=== PATIENT | female | born 1965 | race American Indian/Alaskan Native ===

== ENCOUNTER 2019-03-16 18:07 | Inpatient (IN) | payer MEDICAID, OTHER ==
--- NOTE | 2019-03-16 18:27 | Cat Scan Report ---
PROCEDURE: CT HEAD/BRAIN WO CON TECHNIQUE: Axial noncontrast CT images the brain were performed Total exam DLP 805.14 mgy-centimeter HISTORY: neuro deficits <6hrs or sx present upon awakening COMPARISONS: None FINDINGS: There is questionable subtle loss of the sofia-white junction of the left hemisphere which is atypical location for artifact. There is no gyral edema identified. The sulci are intact. There is no midline shift. Lateral ventricles are normal appearance. Pineal calcification. Bilateral basal ganglia calcification. Tortuous basilar artery is slightly prominent cephalad measuring up to 4 x 6 mm. This may be due to t ortuosity or less likely an aneurysm but cannot be assessed fully in the axial plane. No acute extra-axial fluid collection. No mass effect. Conjugate gaze. Orbital cones and apices are unremarkable. The posterior fossa is unremarkable. Clear imaged paranasal sinuses. Calvarium is unremarkable. IMPRESSION: No acute intracranial hemorrhage. Low-density of the left hemispheric white matter relative to the right which is a common artifactual finding. However, superimposed subtle acute infarct cannot be excluded. There are no secondary signs to suggest this as findings such as gyral effacement or lateral ventricle displacement. Given the cli nical symptoms, if highly suspicious, recommend MRI with diffusion-weighted imaging. Tortuous basilar artery is mildly prominent distally measuring 4 x 6 mm. This is likely due to tortuo sity but a small basilar tip aneurysm cannot be excluded. There are no blood products. Consider furth er assessment with MRA at the time of MRI. Findings are called as a critical level two result on 03/16/2019 at 1823 hours Eastern standard time. This document is electronically signed by Bernice Marsh MD., Mar 16 2019 06:25:27 PM ET
--- NOTE | 2019-03-16 18:30 | Emergency Department Report ---
ED Neuro Deficit HPI - General Chief Complaint: Neuro Symptoms/Deficit Stated Complaint: POSSIBLE STROKE Time Seen by Provider: 03/16/19 18:09 Source: patient, EMS Mode of arrival: Stretcher Limitations: No Limitations - History of Present Illness Initial Comments: Patient is a 53-year-old female that presents emergency room with right-sided weakness and slurred speech. Patient is also complaining of some confusion. Patient states her last normal well time was 520. Patient states that she was on the phone with her mother when her symptoms started. Patient states her speech and weakness is slightly improving. Patient denies chest pain shortness of breath. Patient denies dizziness. Patient denies head trauma. Patient denies past medical history except for hypertension and smoking. -: Sudden Location: speech, dysarthria, right arm, right leg Presenting Symptoms: Present: Weak/Paralyzed One Side, Unable to Speak Clearly History of same: No Place: work Severity: severe Quality: weak Improves With: time Worsens With: none On Anticoagulants: No Context: sudden onset Associated Symptoms: confusion, weakness. denies: chest pain, cough, d iaphoresis, fever/chills, headaches, loss of appetite, malise, nausea/vomiting, vertigo, seizures, shortness of breath, syncope Treatments Prior to Arrival: none - Related Data Home Medications: Home Medications Medication Instructions Recorded Confirmed Last Taken Amlodipine Besylate [Norvasc] 5 mg PO DAILY 03/16/19 03/16/19 Unknown Ergocalciferol (Vitamin D2) 50 mcg PO DAILY 03/16/19 03/16/19 Unknown [Vitamin D2] Allergies/Adverse Reactions: Allergies Allergy/AdvReac Type Severity Reaction Status Date / Time No Known Allergies Allergy Unverified 03/16/19 18:51 ED Review of Systems ROS: Stated complaint: POSSIBLE STROKE Other details as noted in HPI Constitutional: weakness. denies: chills, fever Eyes: denies: eye pain, eye discharge, vision change ENT: denies: ear pain, throat pain Respiratory: denies: cough, shortness of breath, wheezing Cardiovascular: denies: chest pain, palpitations Endocrine: no symptoms reported Gastrointestinal: denies: abdominal pain, nausea, diarrhea Genitourinary: denies: urgency, dysuria, discharge Musculoskeletal: denies: back pain, joint swelling, arthralgia Skin: denies: rash, lesions Neurological: weakness, numbness, confusion, abnormal gait. denies: headache Psychiatric: denies: anxiety, depression Hematological/Lymphatic: denies: easy bleeding, easy bruising ED Past Medical Hx - Past Medical History Previous Medical History?: Yes Hx Hypertension: Yes - Surgical History Past Surgical History?: No - Family History Family history: no significant - Social History Smoking Status: Current Every Day Smoker Substance Use Type: None - Medications Home Medications: Home Medications Medication Instructions Recorded Confirmed Last Taken Type Amlodipine Besylate [Norvasc] 5 mg PO DAILY 03/16/19 03/16/19 Unknown History Ergocalciferol (Vitamin D2) 50 mcg PO DAILY 03/16/19 03/16/19 Unknown History [Vitamin D2] ED Neuro Physical Exam - General Limitations: No Limitations General appearance: alert, in no apparent distress Suspected Stroke: Yes - Head Head exam: Present: atraumatic, normocephalic - Eye Eye exam: Present: normal appearance, PERRL Pupils: Present: normal accommodation - ENT ENT exam: Present: mucous membranes moist - Neck Neck exam: Present: normal inspection - Respiratory Respiratory exam: Present: normal lung sounds bilaterally. Absent: respiratory distress - Cardiovascular Cardiovascular Exam: Present: regular rate, normal rhythm. Absent: systolic murmur, diastolic murmur, rubs, gallop - GI/Abdominal GI/Abdominal exam: Present: soft, normal bowel sounds. Absent: distended, tenderness, guarding - Rectal Rectal exam: Present: deferred - Extremities Exam Extremities exam: Present: normal inspection - Back Exam Back exam: Present: normal inspection - Neurological Exam Neurological exam: Present: alert, oriented X3 - NIHSS Assessment Interval: Baseline 1a. Level of Consciousness: alert/keenly responsive 1b. LOC Questions: answers both correctly 1c. LOC Commands: performs tasks correctly 2. Best Gaze: normal 3. Visual: no visual loss 4. Facial Palsy: minor paralysis 5b. Motor Arm Right: drift 5a. Motor Arm Left: no drift 6a. Motor Leg Left: no drift 6b. Motor Leg Right: drift 7. Limb Ataxia: absent 8. Sensory: mild/moderate sensory loss 9. Best Language: severe aphasia 10. Dysarthria: normal 11. Extinction/Inattention: no abnormality Total Score: 6 Stroke Severity: Moderate Stroke - Psychiatric Psychiatric exam: Present: normal affect, normal mood - Skin Skin exam: Present: warm, dry, intact, normal color. Absent: rash ED Course Vital Signs 03/16/19 03/16/19 03/16/19 18:38 18:59 19:00 Temperature 97.6 F Pulse Rate 86 89 86 Respiratory 16 18 22 Rate Blood Pressure Blood Pressure 161/109 [Right] O2 Sat by Pulse 98 96 96 Oximetry 03/16/19 03/16/19 03/16/19 19:04 19:05 19:11 Temperature Pulse Rate 84 86 98 H Respiratory 17 14 Rate Blood Pressure 168/10 168/102 168/102 Blood Pressure [Right] O2 Sat by Pulse 96 98 Oximetry 03/16/19 03/16/19 03/16/19 19:12 19:15 19:20 Temperature Pulse Rate 90 79 65 Respiratory 13 10 L Rate Blood Pressure 181/112 179/107 158/85 Blood Pressure [Right] O2 Sat by Pulse 99 96 Oximetry 03/16/19 03/16/19 03/16/19 19:21 19:31 19:41 Temperature Pulse Rate 84 89 Respiratory 16 14 Rate Blood Pressure 158/85 Blood Pressure 158/85 150/89 [Right] O2 Sat by Pulse 97 96 97 Oximetry 03/16/19 03/16/19 03/16/19 19:45 19:50 19:52 Temperature Pulse Rate 82 86 70 Respiratory 15 13 11 L Rate Blood Pressure 145/94 146/88 Blood Pressure 145/94 146/88 [Right] O2 Sat by Pulse 96 97 96 Oximetry 03/16/19 03/16/19 03/16/19 19:55 20:00 20:05 Temperature Pulse Rate 76 85 86 Respiratory 16 13 14 Rate Blood Pressure 148/87 148/96 147/92 Blood Pressure [Right] O2 Sat by Pulse 96 95 95 Oximetry 03/16/19 03/16/19 03/16/19 20:08 20:10 20:15 Temperature Pulse Rate 82 80 73 Respiratory 13 8 L 12 Rate Blood Pressure 145/92 156/89 Blood Pressure 147/92 [Right] O2 Sat by Pulse 98 98 97 Oximetry 03/16/19 03/16/19 03/16/19 20:20 20:25 20:30 Temperature Pulse Rate 88 77 78 Respiratory 18 8 L 12 Rate Blood Pressure 150/86 142/83 155/86 Blood Pressure 150/86 [Right] O2 Sat by Pulse 95 95 96 Oximetry 03/16/19 03/16/19 03/16/19 20:35 20:36 20:40 Temperature Pulse Rate 77 76 73 Respiratory 9 L 11 L 14 Rate Blood Pressure 133/82 144/87 Blood Pressure 133/82 [Right] O2 Sat by Pulse 98 98 96 Oximetry 03/16/19 03/16/19 03/16/19 20:45 20:49 20:50 Temperature Pulse Rate 81 85 74 Respiratory 12 15 12 Rate Blood Pressure 142/90 150/91 Blood Pressure 150/91 [Right] O2 Sat by Pulse 97 96 95 Oximetry 03/16/19 03/16/19 03/16/19 20:55 20:57 21:00 Temperature 98.6 F Pulse Rate 70 71 Respiratory 13 14 Rate Blood Pressure 146/87 140/96 Blood Pressure [Right] O2 Sat by Pulse 96 97 Oximetry 03/16/19 03/16/19 03/16/19 21:04 21:05 21:10 Temperature Pulse Rate 80 81 79 Respiratory 14 13 10 L Rate Blood Pressure 148/82 133/84 Blood Pressure 148/82 [Right] O2 Sat by Pulse 97 97 97 Oximetry 03/16/19 03/16/19 03/16/19 21:15 21:21 21:25 Temperature Pulse Rate 76 104 H 80 Respiratory 10 L 21 14 Rate Blood Pressure 121/89 121/89 148/97 Blood Pressure [Right] O2 Sat by Pulse 96 95 95 Oximetry 03/16/19 03/16/19 03/16/19 21:30 21:35 21:40 Temperature Pulse Rate 92 H 88 74 Respiratory 14 13 16 Rate Blood Pressure 143/96 160/101 165/92 Blood Pressure 160/101 [Right] O2 Sat by Pulse 95 98 97 Oximetry 03/16/19 03/16/19 03/16/19 21:43 21:45 21:51 Temperature Pulse Rate 83 190 H Respiratory 13 14 Rate Blood Pressure 151/101 159/109 Blood Pressure 165/92 [Right] O2 Sat by Pulse 97 97 Oximetry 03/16/19 03/16/19 03/16/19 21:55 22:00 22:05 Temperature Pulse Rate 75 74 76 Respiratory 21 12 11 L Rate Blood Pressure 158/117 153/96 153/98 Blood Pressure [Right] O2 Sat by Pulse 98 98 96 Oximetry 05/01/19 05/01/19 05/01/19 22:10 22:15 22:20 Temperature Pulse Rate 76 87 83 Respiratory 11 L 12 10 L Rate Blood Pressure 163/100 144/100 138/88 Blood Pressure [Right] O2 Sat by Pulse 97 97 96 Oximetry 03/16/19 03/16/19 03/16/19 22:25 22:29 22:30 Temperature Pulse Rate 88 95 H Respiratory 14 18 13 Rate Blood Pressure 163/97 162/87 Blood Pressure [Right] O2 Sat by Pulse 98 96 Oximetry 03/16/19 03/16/19 03/16/19 22:35 22:40 22:45 Temperature Pulse Rate 93 H 94 H 89 Respiratory 13 15 14 Rate Blood Pressure 177/85 167/95 161/91 Blood Pressure [Right] O2 Sat by Pulse 97 97 96 Oximetry 03/16/19 03/16/19 22:50 22:54 Temperature Pulse Rate 89 87 Respiratory 11 L Rate Blood Pressure 154/86 154/86 Blood Pressure [Right] O2 Sat by Pulse 97 Oximetry - Reevaluation(s) Reevaluation #1: Initial evaluation done. Patient sent to CT scan. Code stroke initiated prior to arrival. 03/16/19 18:08 Reevaluation #2: Discussed CT findings with neurologist. Neurologist seeing the patient. 03/16/19 18:34 Reevaluation #3: She has agreed to TPA. Patient will be given TPA weight accordance. Neurol ogist still seeing patient. 03/16/19 19:04 Reevaluation #4: Discussed all results patient. Patient patient voiced understanding. Discussed plan of care with patient. Patient agrees to plan of care and admission to the hospitalist service. 03/16/19 20:40 - Consultations Consultation #1: Neurology consulted. 03/16/19 18:04 Stress case fully with neurologist again. Patient will have a CTA and patient started and given TPA. 03/16/19 19:07 Consultation #2: Hospitalist consulted for admission. Hospitalist to admit patient. Hospitalist to assume care patient. 03/16/19 20:40 - Lab Data Result diagrams: 03/16/19 18:20 03/16/19 18:20 Lab Results 03/16/19 03/16/19 03/16/19 Range/Units 18:20 18:20 18:20 WBC 9.0 (4.5-11.0) K/mm3 RBC 4.42 (3.65-5.03) M/mm3 Hgb 14.1 (10.1-14.3) gm/dl Hct 42.2 (30.3-42.9) % MCV 96 (79-97) fl MCH 32 (28-32) pg MCHC 33 (30-34) % RDW 13.8 (13.2-15.2) % Plt Count 229 (140-440) K/mm3 Lymph % (Auto) 41.0 H (13.4-35.0) % Page % (Auto) 5.4 (0.0-7.3) % Eos % (Auto) 1.8 (0.0-4.3) % Baso % (Auto) 0.3 (0.0-1.8) % Lymph # 3.7 (1.2-5.4) K/mm3 Page # 0.5 (0.0-0.8) K/mm3 Eos # 0.2 (0.0-0.4) K/mm3 Baso # 0.0 (0.0-0.1) K/mm3 Seg Neutrophils % 51.5 (40.0-70.0) % Seg Neutrophils # 4.7 (1.8-7.7) K/mm3 PT 13.0 (12.2-14.9) Sec. INR 0.93 (0.87-1.13) APTT 30.3 (24.2-36.6) Sec. Thrombin Time (15.1-19.6) Sec. Sodium (137-145) mmol/L Potassium (3.6-5.0) mmol/L Chloride (98-107) mmol/L Carbon Dioxide (22-30) mmol/L Anion Gap mmol/L BUN (7-17) mg/dL Creatinine (0.7-1.2) mg/dL Estimated GFR ml/min BUN/Creatinine Ratio % Glucose (65-100) mg/dL Calcium (8.4-10.2) mg/dL Troponin T (0.00-0.029) ng/mL HCG, Qual Negative (Negative) 03/16/19 03/16/19 Range/Units 18:20 18:20 WBC (4.5-11.0) K/mm3 RBC (3.65-5.03) M/mm3 Hgb (10.1-14.3) gm/dl Hct (30.3-42.9) % MCV (79-97) fl MCH (28-32) pg MCHC (30-34) % RDW (13.2-15.2) % Plt Count (140-440) K/mm3 Lymph % (Auto) (13.4-35.0) % Page % (Auto) (0.0-7.3) % Eos % (Auto) (0.0-4.3) % Baso % (Auto) (0.0-1.8) % Lymph # (1.2-5.4) K/mm3 Page # (0.0-0.8) K/mm3 Eos # (0.0-0.4) K/mm3 Baso # (0.0-0.1) K/mm3 Seg Neutrophils % (40.0-70.0) % Seg Neutrophils # (1.8-7.7) K/mm3 PT (12.2-14.9) Sec. INR (0.87-1.13) APTT (24.2-36.6) Sec. Thrombin Time 16.3 (15.1-19.6) Sec. Sodium 143 (137-145) mmol/L Potassium 3.7 (3.6-5.0) mmol/L Chloride 103.7 (98-107) mmol/L Carbon Dioxide 28 (22-30) mmol/L Anion Gap 15 mmol/L BUN 12 (7-17) mg/dL Creatinine 0.9 (0.7-1.2) mg/dL Estimated GFR > 60 ml/min BUN/Creatinine Ratio 13 % Glucose 104 H (65-100) mg/dL Calcium 9.0 (8.4-10.2) mg/dL Troponin T < 0.010 (0.00-0.029) ng/mL HCG, Qual (Negative) - EKG Data -: EKG Interpreted by [facility] EKG shows normal: sinus rhythm, axis, intervals, QRS complexes, ST-T waves Rate: normal - Radiology Data Radiology results: report reviewed PROCEDURE: CT HEAD/BRAIN WO CON TECHNIQUE: Axial noncontrast CT images the brain were performed Total exam DLP 805.14 mgy-centimeter HISTORY: neuro deficits <6hrs or sx present upon awakening COMPARISONS: None FINDINGS: There is questionable subtle loss of the sofia-white junction of the left hemisphere which is atypical location for artifact. There is no gyral edema identified. The sulci are intact. There is no midline shift. Lateral ventricles are normal appearance. Pineal calcification. Bilateral basal ganglia calcification. Tortuous basilar artery is slightly prominent cephalad measuring up to 4 x 6 mm. This may be due to tortuosity or less likely an aneurysm but cannot be assessed fully in the axial plane. No acute extra-axial fluid collection. No mass effect. Conjugate gaze. Orbital cones and apices are unremarkable. The posterior fossa is unremarkable. Clear imaged paranasal sinuses. Calvarium is unremarkable. IMPRESSION: No acute intracranial hemorrhage. Low-density of the left hemispheric white matter relative to the right which is a common artifactual finding. However, superimposed subtle acute infarct cannot be excluded. There are no secondary signs to suggest this as findings such as gyral effacement or lateral ventricle displacement. Given the clinical symptoms, if highly suspicious, recommend MRI with diffusion- weighted imaging. Tortuous basilar artery is mildly prominent distally measuring 4 x 6 mm. This is likely due to tortuosity but a small basilar tip aneurysm cannot be excluded. There are no blood products. Consider further assessment with MRA at the time of MRI. Findings are called as a critical level two result on 03/16/2019 at 1823 hours Eastern standard time. ADDENDUM ADDENDUM: Findings discussed with on 03/16/2019 at 1837 hours Eastern standard time. Per the referring clinician, patient has acute right-sided weakness. This document is electronically signed by Bernice aMrsh MD., Mar 16 2019 06:38:20 PM ET PROCEDURE: CT ANGIO NECK TECHNIQUE: Computerized tomographic angiography of the neck was performed after the IV injection of iodinated nonionic contrast including image processing. The image data was postprocessed using 2- dimensional multiplanar reformatted (MPR) and 3-dimensional (MIP and/or volume rendered) techniques. HISTORY: cva. COMPARISONS: None . Note: Assessment of carotid artery stenosis is based on measurement of the distal internal carotid artery diameter as the denominator for stenosis calculations and the [place] Symptomatic C arotid Endarterectomy Trial (NASCET) stenosis criteria. FINDINGS: Vertebral arteries bilaterally appear widely patent. Common carotid arteries appear widely patent. Minimal plaquing visualized proximal left carotid bulb. The carotid bulbs bilaterally otherwise are widely patent. The internal carotid arteries are widely patent. Nonspecific lymph nodes measuring under 8 mm scattered in the right side of the neck. No focal soft tissue abnormalities are identified. IMPRESSION: Minimal atherosclerotic changes seen in the left carotid bulb without significant stenosis. Right and left carotid systems and vertebral arteries are otherwise widely patent. No evidence of high- grade stenosis, occlusion or dissection. PROCEDURE: CT ANGIO HEAD HISTORY: cva. FINDINGS: Contrast-enhanced CT angiography of the head was performed following the intravenous administration of iodinated contrast. Data was reformatted into sagittal and coronal planes. In the posterior circulation, both vertebral arteries are patent. The basilar artery is patent. Both posterior cerebral arteries are identified and appear widely patent. In the anterior circulation, the internal carotid, middle cerebral and anterior cerebral arteries appear patent. No aneurysm is seen. No infarct is seen. Diffusion-weighted MRI may be considered if patient has persistent symptomatology. The superior sagittal sinus, straight sinus and transverse sinuses all appear patent. IMPRESSION: The intracranial arterial vasculature appears widely patent - Medical Decision Making She has a 53-year-old female that presents to [facility] with complaints of right- sided weakness and slurred speech. Patient found to have a CVA. Patient within the window for TPA and Patient was given TPA. Patient was admitted to the hospitalist service. Patient has CT of the head done and results reviewed. CT A done of the head and neck and negative. Labs unremarkable. Patient was admitted to the hospitalist service. - Differential Diagnosis weakness. Slurred speech. CVA. - Core Measures AMI Core Measures Followed: Yes Critical Care Time: Yes Critical care attestation.: If time is entered above; I have spent that time in minutes in the direct care of this critically ill patient, excluding procedure time. Critical Care Time: 80 minutes ED Disposition Clinical Impression: Right sided weakness Stroke Qualifiers: CVA mechanism: unspecified Qualified Code(s): I63.9 - Cerebral infarction, unspecified Hypertension Qualifiers: Hypertension type: essential hypertension Qualified Code(s): I10 - Essential (primary) hypertension Disposition: OP ADMIT IP TO THIS HOSP Is pt being admited?: Yes Does the pt Need Aspirin: No Condition: Critical Time of Disposition: 20:49
[2019-03-16 18:33] LABS: Basophils % (Auto) 0.3 % (0.0-1.8); Eosinophils # (Auto) 0.2 K/mm3 (0.0-0.4); Eosinophils % (Auto) 1.8 % (0.0-4.3); Hematocrit 42.2 % (30.3-42.9); Hemoglobin 14.1 gm/dl (10.1-14.3); Lymphocytes # (Auto) 3.7 K/mm3 (1.2-5.4); Mean Corpuscular HGB Conc 33 % (30-34); Mean Corpuscular Volume 96 fl (79-97); Monocytes # (Auto) 0.5 K/mm3 (0.0-0.8); Monocytes % (Auto) 5.4 % (0.0-7.3); Platelet Count 229 K/mm3 (140-440); Red Blood Count 4.42 M/mm3 (3.65-5.03); Red Cell Distribution Width 13.8 % (13.2-15.2)
[2019-03-16 18:44] LABS: BUN/Creatinine Ratio 13; Blood Urea Nitrogen 12 mg/dL (7-17); Hemolysis Index 2
[2019-03-16 18:52] LABS: INR 0.93 (0.87-1.13)
[2019-03-16 18:53] LABS: Partial Thromboplastin Time 30.3 Sec. (24.2-36.6)
[2019-03-16] MEDS ORDERED: ACTIVASE ONE (18:55)
--- NOTE | 2019-03-16 19:10 | Emergency Department Report ---
ED Neuro Deficit HPI - General Chief Complaint: Neuro Symptoms/Deficit Stated Complaint: POSSIBLE STROKE Time Seen by Provider: 03/16/19 18:09 Source: patient, EMS Mode of arrival: Stretcher Limitations: No Limitations - History of Present Illness Initial Comments: [facility] TeleNeurology Consult Services Date of service: 03/16/19 Impression: acute onset right hemiparesis and mild aphasia - concerning for partial territory L MCA stroke. The risks/benefits/alternatives of IV tpa, including a 6 percent risk of brain bleed and 3 percent risk of , was reviewed with the patient, and she consented to IV tpa. There is subtle loss of sofia-white in the brain on the read, but this is quite subtle and not apparent on my read of her CT. Suspected artifact per the radiology read. Therefore, this is not a c ontraindication. Symptoms concerning for LVO therefore I recommend CTA/P head/neck Differential Diagnosis: 1. Cardioembolic stroke 2. Small vessel disease/lacune 3. Thromboembolic, [id number] mechanism 4. Hypercoagulable state-related infarct 5. Transient ischemic attack 6. Thrombotic mechanism, large artery disease Comments: Door time: 1807 [facility] contacted: 1808 [facility] at bedside: 1817 NIHSS assessment time: 1821 Verbal tpa order: 1850 (delay determining her LKWT) Needle time: 1904 Verbal Consent to tPA: I have explained to the patient/family/guardian the nature of the patients condition, the use of tPA fibrinolytic agent, and the benefits to be reasonably expected compared with alternative approaches. I have discussed the likelihood of major risks or complications of this procedure including (if applicable) but not limited to loss of limb function, brain damage, paralysis, hemorrhage, infection, complications from transfusion of blood components, drug reactions, blood clots and loss of life. I have also indicated that with any procedure there is always the possibility of an unexpected complication. I have explained the risks which include: 1. , Stroke or permanent neurologic injury (paralysis, coma, etc) 2. Worsening of stroke symptoms from swelling or bleeding in the brain 3. Bleeding in other parts of the body 4. Need for blood transfusions to replace blood or clotting factors 5. Allergic reaction to medications 6. Other unexpected complications All questions were answered and the patient/family/guardian express understanding of the treatment plan and consent to the procedure. Our recommendations are outlined below. We will be seeing the patient back in follow up as noted. Recommendations: IV tPA dose = 7.8 mg bolus; 70.6 mg infusion Routine post tPA monitoring including neuro checks and blood pressure control during/after treatment Monitor blood pressure Check blood pressure and NIHSS every 15 min for 2 h, then every 30 min for 6 h, and finally every hour for 16 h Systolic greater than 180 OR diastolic greater than 105: Option 1: Labetalol 10 mg IV for 1 - 2 min May repeat or double labetalol every 10 min to maximum dose of 300 mg, or give initial labetalol dose, then start labetalol drip at 2 - 8 mg/min. Option 2: Nicardipine 5 mg/h IV infusion as initial dose and titrate to desired effect by increasing 2.5 mg/h every 5 min to maximum of 15 mg/h; If blood pressure is not controlled by labetolol or nicardipine, consider sodium nitroprusside. Admission to ICU CT brain 24 hours post tPA NPO until swallowing screen performed and passed No antiplatelet agents or anticoagulants (including heparin for DVT prophylaxis) in first 24 hours No Morgan catheter, nasogastric tube, arterial catheter or central venous catheter for 24 hr, unless absolutely necessary Telemetry Inpatient Neurology Consultation Stroke evaluation as per inpatient neurology recommendations Discussed with ED MD CC speech difficulty and right sided weakness. History of Present Illness Patient is a53 yo woman with acute onset speech difficulty. She was seen by her neighbor to be sitting in her car at 1730. LKWT is unclear. She is confused and having trouble providing details of the history. She takes no blood thinners. She was LSN at approx 1500 by her granddaughter and by her mother by phone at approx 1715. Diagnostic: CT head with no hemorrhage per my read. Exam: RESULT SUMMARY: 9 points NIH Stroke Scale INPUTS: 1A: Level of consciousness > 0 = Alert; keenly responsive 1B: Ask month and age > 0 = Both questions right 1C: 'Blink eyes' & 'squeeze hands' > 0 = Performs both tasks 2: Horizontal extraocular movements > 0 = Normal 3: Visual fortune > 2 = Complete hemianopia 4: Facial palsy > 1 = Minor paralysis (flat nasolabial fold, smile asymmetry) 5A: Left arm motor drift > 0 = No drift for 10 seconds 5B: Right arm motor drift > 2 = Drift, hits bed 6A: Left leg motor drift > 0 = No drift for 5 seconds 6B: Right leg motor drift > 1 = Drift, but doesn't hit bed 7: Limb Ataxia > 0 = No ataxia 8: Sensation > 1 = Mild-moderate loss: less sharp/more dull 9: Language/aphasia > 2 = Severe aphasia: fragmentary expression, inference needed, cannot identify materials 10: Dysarthria > 0 = Normal 11: Extinction/inattention > 0 = No abnormality Medical Decision Making: - Extensive number of diagnosis or management options are considered above. - Extensive amount of complex data reviewed. - High risk of complication and/or morbidity or mortality are associated with differential diagnostic considerations above. - There may be Uncertain outcome and increased probability of prolonged fu nctional impairment or high probability of severe prolonged functional impairment associated with some of these differential diagnosis. Medical Data Reviewed: 1.Data reviewed include clinical labs, radiology, Medical Tests; 2.Tests results discussed w/performing or interpreting physician; 3.Obtaining/reviewing old medical records; 4.Obtaining case history from another source; 5.Independent review of image, tracing or specimen. Patient was informed the Neurology Consult would happen via telehealth (remote video) and consented to receiving care in this manner. Location: speech, dysarthria, right arm, right leg History of same: No Place: work Severity: severe Quality: weak Improves With: time Worsens With: none On Anticoagulants: No Treatments Prior to Arrival: none - Related Data Home Medications: Home Medications Medication Instructions Recorded Confirmed Last Taken Amlodipine Besylate [Norvasc] 5 mg PO DAILY 03/16/19 03/16/19 Unknown Ergocalciferol (Vitamin D2) 50 mcg PO DAILY 03/16/19 03/16/19 Unknown [Vitamin D2] Allergies/Adverse Reactions: Allergies Allergy/AdvReac Type Severity Reaction Status Date / Time No Known Allergies Allergy Unverified 03/16/19 18:51 ED Review of Systems ROS: Stated complaint: POSSIBLE STROKE Other details as noted in HPI Constitutional: denies: chills, fever Eyes: denies: eye pain, eye discharge, vision change ENT: denies: ear pain, throat pain Respiratory: denies: cough, shortness of breath, wheezing Cardiovascular: denies: chest pain, palpitations Endocrine: no symptoms reported Gastrointestinal: denies: abdominal pain, nausea, diarrhea Genitourinary: denies: urgency, dysuria, discharge Musculoskeletal: denies: back pain, joint swelling, arthralgia Skin: denies: rash, lesions Neurological: weakness, numbness, confusion, abnormal gait. denies: headache Psychiatric: denies: anxiety, depression Hematological/Lymphatic: denies: easy bleeding, easy bruising ED Past Medical Hx - Past Medical History Previous Medical History?: Yes Hx Hypertension: Yes - Surgical History Past Surgical History?: No Additional Surgical History: unknown - Social History Smoking Status: Current Every Day Smoker Substance Use Type: None - Medications Home Medications: Home Medications Medication Instructions Recorded Confirmed Last Taken Type Amlodipine Besylate [Norvasc] 5 mg PO DAILY 03/16/19 03/16/19 Unknown History Ergocalciferol (Vitamin D2) 50 mcg PO DAILY 03/16/19 03/16/19 Unknown History [Vitamin D2] ED Neuro Physical Exam - General Limitations: No Limitations General appearance: alert, in no apparent distress Suspected Stroke: Yes - NIHSS Assessment Interval: Baseline 1a. Level of Consciousness: alert/keenly responsive 1b. LOC Questions: answers both correctly 1c. LOC Commands: performs tasks correctly 2. Best Gaze: normal 3. Visual: complete hemianopia 4. Facial Palsy: minor paralysis 5b. Motor Arm Right: some gravity effort 5a. Motor Arm Left: no drift 6a. Motor Leg Left: drift 6b. Motor Leg Right: drift 7. Limb Ataxia: absent 8. Sensory: normal 9. Best Language: severe aphasia 10. Dysarthria: normal 11. Extinction/Inattention: no abnormality Total Score: 9 Stroke Severity: Moderate Stroke ED Course Vital Signs 03/16/19 18:38 Temperature 97.6 F Pulse Rate 86 Respiratory 16 Rate Blood Pressure 161/109 [Right] O2 Sat by Pulse 98 Oximetry - Lab Data Result diagrams: 03/16/19 18:20 03/16/19 18:20 Lab Results 03/16/19 03/16/19 03/16/19 Range/Units 18:20 18:20 18:20 WBC 9.0 (4.5-11.0) K/mm3 RBC 4.42 (3.65-5.03) M/mm3 Hgb 14.1 (10.1-14.3) gm/dl Hct 42.2 (30.3-42.9) % MCV 96 (79-97) fl MCH 32 (28-32) pg MCHC 33 (30-34) % RDW 13.8 (13.2-15.2) % Plt Count 229 (140-440) K/mm3 Lymph % (Auto) 41.0 H (13.4-35.0) % [place] % (Auto) 5.4 (0.0-7.3) % Eos % (Auto) 1.8 (0.0-4.3) % Baso % (Auto) 0.3 (0.0-1.8) % Lymph # 3.7 (1.2-5.4) K/mm3 [place] # 0.5 (0.0-0.8) K/mm3 Eos # 0.2 (0.0-0.4) K/mm3 Baso # 0.0 (0.0-0.1) K/mm3 Seg Neutrophils % 51.5 (40.0-70.0) % Seg Neutrophils # 4.7 (1.8-7.7) K/mm3 PT 13.0 (12.2-14.9) Sec. INR 0.93 (0.87-1.13) APTT 30.3 (24.2-36.6) Sec. Thrombin Time (15.1-19.6) Sec. Sodium (137-145) mmol/L Potassium (3.6-5.0) mmol/L Chloride (98-107) mmol/L Carbon Dioxide (22-30) mmol/L Anion Gap mmol/L BUN (7-17) mg/dL Creatinine (0.7-1.2) mg/dL Estimated GFR ml/min BUN/Creatinine Ratio % Glucose (65-100) mg/dL Calcium (8.4-10.2) mg/dL Troponin T (0.00-0.029) ng/mL HCG, Qual Negative (Negative) 03/16/19 03/16/19 Range/Units 18:20 18:20 WBC (4.5-11.0) K/mm3 RBC (3.65-5.03) M/mm3 Hgb (10.1-14.3) gm/dl Hct (30.3-42.9) % MCV (79-97) fl MCH (28-32) pg MCHC (30-34) % RDW (13.2-15.2) % Plt Count (140-440) K/mm3 Lymph % (Auto) (13.4-35.0) % [place] % (Auto) (0.0-7.3) % Eos % (Auto) (0.0-4.3) % Baso % (Auto) (0.0-1.8) % Lymph # (1.2-5.4) K/mm3 [place] # (0.0-0.8) K/mm3 Eos # (0.0-0.4) K/mm3 Baso # (0.0-0.1) K/mm3 Seg Neutrophils % (40.0-70.0) % Seg Neutrophils # (1.8-7.7) K/mm3 PT (12.2-14.9) Sec. INR (0.87-1.13) APTT (24.2-36.6) Sec. Thrombin Time 16.3 (15.1-19.6) Sec. Sodium 143 (137-145) mmol/L Potassium 3.7 (3.6-5.0) mmol/L Chloride 103.7 (98-107) mmol/L Carbon Dioxide 28 (22-30) mmol/L Anion Gap 15 mmol/L BUN 12 (7-17) mg/dL Creatinine 0.9 (0.7-1.2) mg/dL Estimated GFR > 60 ml/min BUN/Creatinine Ratio 13 % Glucose 104 H (65-100) mg/dL Calcium 9.0 (8.4-10.2) mg/dL Troponin T < 0.010 (0.00-0.029) ng/mL HCG, Qual (Negative) Critical care attestation.: If time is entered above; I have spent that time in minutes in the direct care of this critically ill patient, excluding procedure time. ED Disposition Clinical Impression: Stroke Disposition: OP ADMIT IP TO THIS HOSP Is pt being admited?: Yes Condition: Stable Referrals: RAMÍREZ BORGES MD [Primary Care Provider] - 3-5 Days
[2019-03-16] MEDS ORDERED: NACL 0.9% 100 ML ONE (19:44)
--- NOTE | 2019-03-16 20:22 | Cat Scan Report ---
PROCEDURE: CT ANGIO NECK TECHNIQUE: Computerized tomographic angiography of the neck was performed after the IV injection of iodinated nonionic contrast including image processing. The image data was postprocessed using 2-dime nsional multiplanar reformatted (MPR) and 3-dimensional (MIP and/or volume rendered) techniques. HISTORY: cva. COMPARISONS: None . Note: Assessment of carotid artery stenosis is based on measurement of the distal internal carotid a rtery diameter as the denominator for stenosis calculations and the [place] Symptomatic Caroti d Endarterectomy Trial (NASCET) stenosis criteria. FINDINGS: Vertebral arteries bilaterally appear widely patent. Common carotid arteries appear widely patent. Minimal plaquing visualized proximal left carotid bulb. The carotid bulbs bilaterally otherwise are widely patent. The internal carotid arteries are widely patent. Nonspecific lymph nodes measuring under 8 mm scattered in the right side of the neck. No focal soft t issue abnormalities are identified. IMPRESSION: Minimal atherosclerotic changes seen in the left carotid bulb without significant stenosis. Right and left carotid systems and vertebral arteries are otherwise widely patent. No evidence of high-grade s tenosis, occlusion or dissection. This document is electronically signed by Krishan Macias MD., Mar 16 2019 08:21:12 PM ET
--- NOTE | 2019-03-16 20:33 | Cat Scan Report ---
PROCEDURE: CT ANGIO HEAD HISTORY: cva. FINDINGS: Contrast-enhanced CT angiography of the head was performed following the intravenous admini stration of iodinated contrast. Data was reformatted into sagittal and coronal planes. In the posterior circulation, both vertebral arteries are patent. The basilar artery is patent. Both posterior cerebral arteries are identified and appear widely patent. In the anterior circulation, the internal carotid, middle cerebral and anterior cerebral arteries emmanuel ear patent. No aneurysm is seen. No infarct is seen. Diffusion-weighted MRI may be considered if patient has persistent symptomatology . The superior sagittal sinus, straight sinus and transverse sinuses all appear patent. IMPRESSION: The intracranial arterial vasculature appears widely patent This document is electronically signed by Temo Huerta MD., Mar 16 2019 08:31:30 PM ET
[2019-03-16] MEDS ORDERED: NACL 0.9% IV ONE ×2 (20:43→21:34)
[2019-03-16] MEDS ORDERED: ACTIVASE IV ONE ×4 (20:43→21:34)
[2019-03-16] MEDS ORDERED: VASELINE LIP THERAPY TP PRN (21:27)
[2019-03-16] MEDS ORDERED: ZOFRAN IV PRN (21:34)
[2019-03-16] MEDS ORDERED: SODIUM CHLORIDE FLUSH SYRINGE 10 ML IV PRN (21:34)
[2019-03-16] MEDS ORDERED: DULCOLAX PR PRN (21:34)
[2019-03-16] MEDS ORDERED: NORMODYNE IV PRN (21:34)
[2019-03-16] MEDS ORDERED: MILK OF MAGNESIA PO PRN (21:34)
[2019-03-16] MEDS ORDERED: REGLAN PO PRN (21:34)
[2019-03-16] MEDS ORDERED: PHENERGAN PR PRN (21:34)
--- NOTE | 2019-03-16 21:48 | History and Physical Report ---
History of Present Illness Date of examination: 03/16/19 Date of admission: 03/16/2019 Chief complaint: Inability to speak and move History of present illness: Patient is a 53-year-old -Indian female with history of hypertension who was brought to the ED via EMS on account of inability to speak and move. The patient stated that while she was talking to her mum over the phone at about 17:20, at some point she suddenly couldn't speak and move. She stated that she could understand what was being said but that she couldn't speak. Her mom then called her neighbor, who called 911 and she was brought to the hospital. On arrival to the ED, she was noted to have slurred speech with right-sided weakness. She received TPA at about 19:07 with resolution of her symptoms. Patient denies headache, nausea, vomiting, lightheadedness, syncope or loss of consciousness. No chest pain, shortness of breath, palpitation, cough, fever, chills, sore throat, runny nose or congestion, leg swelling, orthopnea or PND. No abdominal pain, bleeding from any orifice, constipation, diarrhea, dysuria or frequency. No prior history of presenting complaint and patient admits to being compliant with her medications. Past History Past Medical History: hypertension Past Surgical History: Other (surgeries for ectopic and ovarian cysts) Social history: smoking (she has 40 years history of cigarette smoking. She currently smokes 1 pack per day. She admits to occasional alcohol and marijuana use but denies other illicit drug use) Family history: hypertension (both parents, no known family history of stroke) Medications and Allergies Allergies Allergy/AdvReac Type Severity Reaction Status Date / Time No Known Allergies Allergy Unverified 03/16/19 18:51 Home Medications Medication Instructions Recorded Confirmed Last Taken Type Amlodipine Besylate [Norvasc] 5 mg PO DAILY 03/16/19 03/16/19 Unknown History Ergocalciferol (Vitamin D2) 50 mcg PO DAILY 03/16/19 03/16/19 Unknown History [Vitamin D2] Active Meds: Active Medications Acetaminophen (Tylenol) 650 mg PO Q4H PRN PRN Reason: Pain, Mild (1-3) Alteplase, Recombinant (Activase) 7.8 mg 0.09 mg/kg (7.8 mg) IV ONCE ONE; Protocol Stop: 03/16/19 21:35 Alteplase, Recombinant (Activase) 70.6 mg 0.81 mg/kg (70.6 mg) IV ONCE ONE; Protocol Stop: 03/16/19 21:35 Aspirin (Aspirin) 325 mg PO QDAY [facility] Atorvastatin Calcium (Lipitor) 40 mg PO QHS [facility] Bisacodyl (Dulcolax) 10 mg NE QDAY PRN PRN Reason: Constipation Hydrophilic Ointment (Vaseline Lip Therapy) 1 applic TP DIRECT PRN PRN Reason: Dry Lips Labetalol HCl (Normodyne) 10 mg IV Q5MIN PRN PRN Reason: to maintain SBP < 180 Magnesium Hydroxide (Milk Of Magnesia) 30 ml PO Q4H PRN PRN Reason: Constipation Metoclopramide HCl (Reglan) 10 mg PO Q6H PRN PRN Reason: Nausea And Vomiting Ondansetron HCl (Zofran) 4 mg IV Q8H PRN PRN Reason: Nausea And Vomiting Promethazine HCl (Phenergan) 25 mg NE Q6H PRN PRN Reason: Nausea And Vomiting Sodium Chloride (Nacl 0.9%) 50 ml IV ONCE ONE Stop: 03/16/19 21:35 Sodium Chloride (Sodium Chloride Flush Syringe 10 Ml) 10 ml INJ PRN PRN PRN Reason: LINE FLUSH Review of Systems All systems: negative (except as documented in the HPI, all other systems were reviewed and negative) Exam - Constitutional Vitals: Temp Pulse Resp BP Pulse Ox 98.6 F 85 13 165/92 99 03/16/19 20:57 03/16/19 21:35 03/16/19 21:35 03/16/19 21:43 03/16/19 21:35 General appearance: Present: no acute distress, well-nourished - EENT Eyes: Present: PERRL, EOM intact ENT: hearing intact, clear oral mucosa - Neck Neck: Present: supple, normal ROM - Respiratory Respiratory effort: normal Respiratory: bilateral: CTA - Cardiovascular Rhythm: regular Heart Sounds: Present: S1 & S2. Absent: rub, click - Extremities Extremities: No edema Peripheral Pulses: within normal limits - Abdominal General gastrointestinal: Present: soft, non-tender, non-distended, normal bowel sounds Female genitourinary: Present: deferred - Integumentary Integumentary: Present: clear, warm, dry - Musculoskeletal Musculoskeletal: gait normal, strength equal bilaterally - Psychiatric Psychiatric: appropriate mood/affect, intact judgment & insight - Neurologic Neurologic: CNII-XII intact, moves all extremities Results - Labs CBC & Chem 7: 03/16/19 18:20 03/16/19 18:20 Labs: Laboratory Last Values WBC 9.0 K/mm3 (4.5-11.0) 03/16/19 18:20 RBC 4.42 M/mm3 (3.65-5.03) 03/16/19 18:20 Hgb 14.1 gm/dl (10.1-14.3) 03/16/19 18:20 Hct 42.2 % (30.3-42.9) 03/16/19 18:20 MCV 96 fl (79-97) 03/16/19 18:20 MCH 32 pg (28-32) 03/16/19 18:20 MCHC 33 % (30-34) 03/16/19 18:20 RDW 13.8 % (13.2-15.2) 03/16/19 18:20 Plt Count 229 K/mm3 (140-440) 03/16/19 18:20 Lymph % (Auto) 41.0 % (13.4-35.0) H 03/16/19 18:20 [place] % (Auto) 5.4 % (0.0-7.3) 03/16/19 18:20 Eos % (Auto) 1.8 % (0.0-4.3) 03/16/19 18:20 Baso % (Auto) 0.3 % (0.0-1.8) 03/16/19 18:20 Lymph # 3.7 K/mm3 (1.2-5.4) 03/16/19 18:20 [place] # 0.5 K/mm3 (0.0-0.8) 03/16/19 18:20 Eos # 0.2 K/mm3 (0.0-0.4) 03/16/19 18:20 Baso # 0.0 K/mm3 (0.0-0.1) 03/16/19 18:20 Seg Neutrophils % 51.5 % (40.0-70.0) 03/16/19 18:20 Seg Neutrophils # 4.7 K/mm3 (1.8-7.7) 03/16/19 18:20 PT 13.0 Sec. (12.2-14.9) 03/16/19 18:20 INR 0.93 (0.87-1.13) 03/16/19 18:20 APTT 30.3 Sec. (24.2-36.6) 03/16/19 18:20 Thrombin Time 16.3 Sec. (15.1-19.6) 03/16/19 18:20 Sodium 143 mmol/L (137-145) 03/16/19 18:20 Potassium 3.7 mmol/L (3.6-5.0) 03/16/19 18:20 Chloride 103.7 mmol/L (98-107) 03/16/19 18:20 Carbon Dioxide 28 mmol/L (22-30) 03/16/19 18:20 Anion Gap 15 mmol/L 03/16/19 18:20 BUN 12 mg/dL (7-17) 03/16/19 18:20 Creatinine 0.9 mg/dL (0.7-1.2) 03/16/19 18:20 Estimated GFR > 60 ml/min 03/16/19 18:20 BUN/Creatinine Ratio 13 % 03/16/19 18:20 Glucose 104 mg/dL (65-100) H 03/16/19 18:20 Calcium 9.0 mg/dL (8.4-10.2) 03/16/19 18:20 Troponin T < 0.010 ng/mL (0.00-0.029) 03/16/19 18:20 HCG, Qual Negative (Negative) 03/16/19 18:20 Assessment and Plan Assessment and plan: Acute ischemic stroke -Status post TPA -On stroke protocol -CT head suspicious for acute stroke -MRI head, echo and carotid duplex pending -Neurology consulted Abnormal CTA head -MRA head pending Hypertensive crisis -On PRN IV antihypertensive to keep BP < 185/110 Tobacco and marijuana abuse -Cessation recommended DVT prophylaxis with SCD Disposition: Patient will be admitted to the ICU I spent 45 minutes providing critical care to this seriously ill patient who requires frequent reassessments of her neurologic status.
[2019-03-16] MEDS ORDERED: NORMODYNE IV STA (22:06)
[2019-03-16] MEDS ORDERED: VASELINE LIP THERAPY TP ONE (22:37)
[2019-03-16] MEDS ORDERED: NORMODYNE IV ONE (22:43)
[2019-03-17 00:05] LABS: Bilirubin,Urine NEG (Negative); Blood,Urine MOD (Negative); Color,Urine Straw (Yellow); Protein,Urine <15 mg/dL mg/dL (Negative); Urobilinogen,Urine < 2.0 mg/dL (<2.0)
[2019-03-17] MEDS: TYLENOL PO PRN ×2 (02:49→19:47)
[2019-03-17 05:43] LABS: Chol/HDL Ratio 4.47 %
[2019-03-17] MEDS ORDERED: ERGOCALCIFEROL 50 MCG PO SCH (10:00)
--- NOTE | 2019-03-17 11:25 | Consultation ---
History of Present Illness Consult date: 03/17/19 Requesting physician: GABE ANDRES Reason for consult: other (Acute CVA s/p TPA\) History of present illness: PULMONARY/CCM CONSULT NOTE (Full dictation # [id number]) Please see dictated notes for full details Past History Past Medical History: hypertension Past Surgical History: Other (surgeries for ectopic and ovarian cysts) Social history: smoking (she has 40 years history of cigarette smoking. She currently smokes 1 pack per day. She admits to occasional alcohol and marijuana use but denies other illicit drug use) Family history: hypertension (both parents, no known family history of stroke) Medications and Allergies Allergies Allergy/AdvReac Type Severity Reaction Status Date / Time No Known Allergies Allergy Unverified 03/16/19 18:51 Home Medications Medication Instructions Recorded Confirmed Last Taken Type Amlodipine Besylate [Norvasc] 5 mg PO DAILY 03/16/19 03/16/19 Unknown History Ergocalciferol (Vitamin D2) 50 mcg PO DAILY 03/16/19 03/16/19 Unknown History [Vitamin D2] Active Meds: Active Medications Acetaminophen (Tylenol) 650 mg PO Q4H PRN PRN Reason: Pain, Mild (1-3) Last Admin: 03/17/19 02:49 Dose: 650 mg Documented by: Aspirin (Aspirin) 325 mg PO QDAY [facility] Atorvastatin Calcium (Lipitor) 40 mg PO QHS [facility] Last Admin: 03/16/19 22:54 Dose: 40 mg Documented by: Bisacodyl (Dulcolax) 10 mg [place] QDAY PRN PRN Reason: Constipation Hydrophilic Ointment (Vaseline Lip Therapy) 1 applic TP DIRECT PRN PRN Reason: Dry Lips Labetalol HCl (Normodyne) 10 mg IV Q5MIN PRN PRN Reason: Blood Pressure Magnesium Hydroxide (Milk Of Magnesia) 30 ml PO Q4H PRN PRN Reason: Constipation Metoclopramide HCl (Reglan) 10 mg PO Q6H PRN PRN Reason: Nausea And Vomiting Miscellaneous Medication (Ergocalciferol (Vitamin D2) [Vitamin D2]) 50 mcg PO DAILY [facility] Ondansetron HCl (Zofran) 4 mg IV Q8H PRN PRN Reason: Nausea And Vomiting Promethazine HCl (Phenergan) 25 mg [place] Q6H PRN PRN Reason: Nausea And Vomiting Sodium Chloride (Sodium Chloride Flush Syringe 10 Ml) 10 ml IV PRN PRN PRN Reason: LINE FLUSH Physical Examination Vital signs: Vital Signs Temp Pulse Resp BP Pulse Ox 97.6 F 86 16 161/109 98 03/16/19 18:38 03/16/19 18:38 03/16/19 18:38 03/16/19 18:38 03/16/19 18:38 Results - Laboratory Findings CBC and BMP: 03/16/19 18:20 03/16/19 18:20 PT/INR, D-dimer PT 13.0 Sec. (12.2-14.9) 03/16/19 18:20 INR 0.93 (0.87-1.13) 03/16/19 18:20 Abnormal lab findings: Abnormal Labs 03/16/19 03/16/19 03/16/19 18:20 18:20 23:50 Lymph % (Auto) 41.0 H Glucose 104 H POC Glucose 152 H LDL Cholesterol Direct 03/17/19 04:14 Lymph % (Auto) Glucose POC Glucose LDL Cholesterol Direct 142 H
--- NOTE | 2019-03-17 11:36 | Progress Note ---
<FAMILIA STEVENS Shravan - Last Filed: 03/17/19 16:22> Assessment and Plan Assessment and plan: 53-year-old -[place] female with history of hypertension who was brought to the ED via EMS on account of inability to speak and move. The patient stated that while she was talking to her mum over the phone at about 17:20, at some point she suddenly couldn't speak and move. She stated that she could understand what was being said but that she couldn't speak. Her mom then called her neighbor, who called 911 and she was brought to the hospital. On arrival to the ED, she was noted to have slurred speech with right-sided weakness. Initial CT Head suspicious for acute stroke. She received TPA at about 19:07 with resolution of her symptoms. Acute Ischemic Stroke Abnormal CT Head Hypertensive Crisis Tobacco Abuse Marijuana Abuse Hx of HTN Plan: S/P TPA Continue Stroke protocol Repeat CT Head reveal: The intracranial arterial vasculature appears widely patent MRI head and carotid doppler pending Echo shows LVEF of 60% - 65% Contiue to monitor BP IV Labetalol prn for SBP >185 or DBP >1110 Continue to allow for permissive hypertension Continue to encourage cessation of tobacco and marijuana Neurology consult pending History Interval history: Pt is seen in the ICU. She received TPA yesterday. Pt is able to talk follow commands, and move all extremities. She complains of intermittent numbness in right hand. She has no focal deficits. She denies n/v, pain, CP, discomfort, dyspnes, or headache. Hospitalist Physical - Constitutional Vitals: Temp Pulse Resp BP Pulse Ox 98.2 F 78 22 138/84 98 03/17/19 08:43 03/17/19 10:00 03/17/19 10:00 03/17/19 10:00 03/17/19 10:00 General appearance: Present: no acute distress, well-nourished - EENT Eyes: Present: PERRL, EOM intact ENT: hearing intact, clear oral mucosa, dentition normal - Neck Neck: Present: supple, normal ROM - Respiratory Respiratory effort: normal Respiratory: bilateral: CTA - Cardiovascular Heart rate: 88 (bpm) Rhythm: regular Heart Sounds: Present: S1 & S2. Absent: rub, click - Extremities Extremities: pulses intact, pulses symmetrical, No edema, Full ROM (c/o rt hand numbness) - Abdominal General gastrointestinal: soft, non-tender, normal bowel sounds - Integumentary Integumentary: Present: warm, dry - Psychiatric Psychiatric: appropriate mood/affect, cooperative - Neurologic Neurologic: CNII-XII intact, moves all extremities Results - Labs CBC & Chem 7: 03/16/19 18:20 03/16/19 18:20 Labs: Laboratory Last Values WBC 9.0 K/mm3 (4.5-11.0) 03/16/19 18:20 RBC 4.42 M/mm3 (3.65-5.03) 03/16/19 18:20 Hgb 14.1 gm/dl (10.1-14.3) 03/16/19 18:20 Hct 42.2 % (30.3-42.9) 03/16/19 18:20 MCV 96 fl (79-97) 03/16/19 18:20 MCH 32 pg (28-32) 03/16/19 18:20 MCHC 33 % (30-34) 03/16/19 18:20 RDW 13.8 % (13.2-15.2) 03/16/19 18:20 Plt Count 229 K/mm3 (140-440) 03/16/19 18:20 Lymph % (Auto) 41.0 % (13.4-35.0) H 03/16/19 18:20 [place] % (Auto) 5.4 % (0.0-7.3) 03/16/19 18:20 Eos % (Auto) 1.8 % (0.0-4.3) 03/16/19 18:20 Baso % (Auto) 0.3 % (0.0-1.8) 03/16/19 18:20 Lymph # 3.7 K/mm3 (1.2-5.4) 03/16/19 18:20 [place] # 0.5 K/mm3 (0.0-0.8) 03/16/19 18:20 Eos # 0.2 K/mm3 (0.0-0.4) 03/16/19 18:20 Baso # 0.0 K/mm3 (0.0-0.1) 03/16/19 18:20 Seg Neutrophils % 51.5 % (40.0-70.0) 03/16/19 18:20 Seg Neutrophils # 4.7 K/mm3 (1.8-7.7) 03/16/19 18:20 PT 13.0 Sec. (12.2-14.9) 03/16/19 18:20 INR 0.93 (0.87-1.13) 03/16/19 18:20 APTT 30.3 Sec. (24.2-36.6) 03/16/19 18:20 Thrombin Time 16.3 Sec. (15.1-19.6) 03/16/19 18:20 Sodium 143 mmol/L (137-145) 03/16/19 18:20 Potassium 3.7 mmol/L (3.6-5.0) 03/16/19 18:20 Chloride 103.7 mmol/L (98-107) 03/16/19 18:20 Carbon Dioxide 28 mmol/L (22-30) 03/16/19 18:20 Anion Gap 15 mmol/L 03/16/19 18:20 BUN 12 mg/dL (7-17) 03/16/19 18:20 Creatinine 0.9 mg/dL (0.7-1.2) 03/16/19 18:20 Estimated GFR > 60 ml/min 03/16/19 18:20 BUN/Creatinine Ratio 13 % 03/16/19 18:20 Glucose 104 mg/dL (65-100) H 03/16/19 18:20 POC Glucose 152 (70-105) H 03/16/19 23:50 Calcium 9.0 mg/dL (8.4-10.2) 03/16/19 18:20 Troponin T < 0.010 ng/mL (0.00-0.029) 03/16/19 18:20 Triglycerides 113 mg/dL (2-149) 03/17/19 04:14 Cholesterol 188 mg/dL (50-199) 03/17/19 04:14 LDL Cholesterol Direct 142 mg/dL (50-130) H 03/17/19 04:14 HDL Cholesterol 42 mg/dL (40-59) 03/17/19 04:14 Cholesterol/HDL Ratio 4.47 % 03/17/19 04:14 HCG, Qual Negative (Negative) 03/16/19 18:20 Urine Color Straw (Yellow) 03/16/19 23:30 Urine Turbidity Clear (Clear) 03/16/19 23:30 Urine pH 7.0 (5.0-7.0) 03/16/19 23:30 Ur Specific [place] 1.030 (1.003-1.030) 03/16/19 23:30 Urine Protein <15 mg/dl mg/dL (Negative) 03/16/19 23:30 Urine Glucose (UA) Neg mg/dL (Negative) 03/16/19 23:30 Urine Ketones Neg mg/dL (Negative) 03/16/19 23:30 Urine Blood Mod (Negative) 03/16/19 23:30 Urine Nitrite Neg (Negative) 03/16/19 23:30 Urine Bilirubin Neg (Negative) 03/16/19 23:30 Urine Urobilinogen < 2.0 mg/dL (<2.0) 03/16/19 23:30 Ur Leukocyte Esterase Neg (Negative) 03/16/19 23:30 Urine WBC (Auto) 1.0 /HPF (0.0-6.0) 03/16/19 23:30 Urine RBC (Auto) 2.0 /HPF (0.0-6.0) 03/16/19 23:30 Active Medications - Current Medications Current Medications: Generic Name Dose Route Start Last Admin Trade Name Freq PRN Reason Stop Dose Admin Acetaminophen 650 mg 03/16/19 21:34 03/17/19 02:49 Tylenol PO 650 mg Q4H PRN Administration Pain, Mild (1-3) Aspirin 325 mg 03/17/19 20:00 Aspirin PO QDAY ABIGAIL Atorvastatin Calcium 40 mg 03/16/19 22:00 03/16/19 22:54 Lipitor PO 40 mg QHS ABIGAIL Administration Bisacodyl 10 mg 03/16/19 21:34 Dulcolax [place] QDAY PRN Constipation Hydrophilic Ointment 1 applic 03/16/19 21:27 Vaseline Lip Therapy TP DIRECT PRN Dry Lips Labetalol HCl 10 mg 03/16/19 21:34 Normodyne IV Q5MIN PRN Blood Pressure Magnesium Hydroxide 30 ml 03/16/19 21:34 Milk Of Magnesia PO Q4H PRN Constipation Metoclopramide HCl 10 mg 03/16/19 21:34 Reglan PO Q6H PRN Nausea And Vomiting Miscellaneous Medication 50 mcg 03/17/19 10:00 Ergocalciferol (Vitamin D2) [Vitamin D2] PO DAILY ABIGAIL Ondansetron HCl 4 mg 03/16/19 21:34 Zofran IV Q8H PRN Nausea And Vomiting Promethazine HCl 25 mg 03/16/19 21:34 Phenergan [place] Q6H PRN Nausea And Vomiting Sodium Chloride 10 ml 03/16/19 21:34 Sodium Chloride Flush Syringe 10 Ml IV PRN PRN LINE FLUSH <KERRI VERONICA M - Last Filed: 03/19/19 19:21> Assessment and Plan Assessment and plan: I saw and evaluated the patient. I agree with the findings and the plan of care as documented in the Nurse Practitioner's~note, with the following corrections and additions. acute cva- cont stroke protocol htn urgency; allow permissive htn, optimize meds counseled about tobacco cessation, and lifestyle modification CCT 33 mins Hospitalist Physical - Constitutional Vitals: Temp Pulse Resp BP Pulse Ox 98.6 F 84 18 137/83 95 03/18/19 22:01 03/18/19 22:01 03/18/19 22:01 03/18/19 22:01 03/19/19 09:00 Results - Labs CBC & Chem 7: 03/16/19 18:20 03/16/19 18:20 Labs: Laboratory Last Values WBC 9.0 K/mm3 (4.5-11.0) 03/16/19 18:20 RBC 4.42 M/mm3 (3.65-5.03) 03/16/19 18:20 Hgb 14.1 gm/dl (10.1-14.3) 03/16/19 18:20 Hct 42.2 % (30.3-42.9) 03/16/19 18:20 MCV 96 fl (79-97) 03/16/19 18:20 MCH 32 pg (28-32) 03/16/19 18:20 MCHC 33 % (30-34) 03/16/19 18:20 RDW 13.8 % (13.2-15.2) 03/16/19 18:20 Plt Count 229 K/mm3 (140-440) 03/16/19 18:20 Lymph % (Auto) 41.0 % (13.4-35.0) H 03/16/19 18:20 [place] % (Auto) 5.4 % (0.0-7.3) 03/16/19 18:20 Eos % (Auto) 1.8 % (0.0-4.3) 03/16/19 18:20 Baso % (Auto) 0.3 % (0.0-1.8) 03/16/19 18:20 Lymph # 3.7 K/mm3 (1.2-5.4) 03/16/19 18:20 [place] # 0.5 K/mm3 (0.0-0.8) 03/16/19 18:20 Eos # 0.2 K/mm3 (0.0-0.4) 03/16/19 18:20 Baso # 0.0 K/mm3 (0.0-0.1) 03/16/19 18:20 Seg Neutrophils % 51.5 % (40.0-70.0) 03/16/19 18:20 Seg Neutrophils # 4.7 K/mm3 (1.8-7.7) 03/16/19 18:20 PT 13.0 Sec. (12.2-14.9) 03/16/19 18:20 INR 0.93 (0.87-1.13) 03/16/19 18:20 APTT 30.3 Sec. (24.2-36.6) 03/16/19 18:20 Thrombin Time 16.3 Sec. (15.1-19.6) 03/16/19 18:20 Sodium 143 mmol/L (137-145) 03/16/19 18:20 Potassium 3.7 mmol/L (3.6-5.0) 03/16/19 18:20 Chloride 103.7 mmol/L (98-107) 03/16/19 18:20 Carbon Dioxide 28 mmol/L (22-30) 03/16/19 18:20 Anion Gap 15 mmol/L 03/16/19 18:20 BUN 12 mg/dL (7-17) 03/16/19 18:20 Creatinine 0.9 mg/dL (0.7-1.2) 03/16/19 18:20 Estimated GFR > 60 ml/min 03/16/19 18:20 BUN/Creatinine Ratio 13 % 03/16/19 18:20 Glucose 104 mg/dL (65-100) H 03/16/19 18:20 POC Glucose 152 (70-105) H 03/16/19 23:50 Hemoglobin A1c 6.5 % (4-6) H 03/18/19 05:17 Calcium 9.0 mg/dL (8.4-10.2) 03/16/19 18:20 Troponin T < 0.010 ng/mL (0.00-0.029) 03/16/19 18:20 Triglycerides 113 mg/dL (2-149) 03/17/19 04:14 Cholesterol 188 mg/dL (50-199) 03/17/19 04:14 LDL Cholesterol Direct 142 mg/dL (50-130) H 03/17/19 04:14 HDL Cholesterol 42 mg/dL (40-59) 03/17/19 04:14 Cholesterol/HDL Ratio 4.47 % 03/17/19 04:14 HCG, Qual Negative (Negative) 03/16/19 18:20 Urine Color Straw (Yellow) 03/16/19 23:30 Urine Turbidity Clear (Clear) 03/16/19 23:30 Urine pH 7.0 (5.0-7.0) 03/16/19 23:30 Ur Specific [place] 1.030 (1.003-1.030) 03/16/19 23:30 Urine Protein <15 mg/dl mg/dL (Negative) 03/16/19 23:30 Urine Glucose (UA) Neg mg/dL (Negative) 03/16/19 23:30 Urine Ketones Neg mg/dL (Negative) 03/16/19 23:30 Urine Blood Mod (Negative) 03/16/19 23:30 Urine Nitrite Neg (Negative) 03/16/19 23:30 Urine Bilirubin Neg (Negative) 03/16/19 23:30 Urine Urobilinogen < 2.0 mg/dL (<2.0) 03/16/19 23:30 Ur Leukocyte Esterase Neg (Negative) 03/16/19 23:30 Urine WBC (Auto) 1.0 /HPF (0.0-6.0) 03/16/19 23:30 Urine RBC (Auto) 2.0 /HPF (0.0-6.0) 03/16/19 23:30
--- NOTE | 2019-03-17 17:33 | Consultation ---
History of Present Illness Consult date: 03/17/19 Chief complaint: unable to speak and move History of present illness: This is a 53 YO F who presented to the ED after having a spell where she was unable to move or speak. On arrival to the ED she was thought to have slurred speech and be weak on the right so Alteplase was given. Pt feels 90% back to baseline now, still with intermittant numbness in her right hand. Not taking aspirin nor statin daily. Past History Past Medical History: hypertension Past Surgical History: Other (surgeries for ectopic and ovarian cysts) Social history: smoking (she has 40 years history of cigarette smoking. She currently smokes 1 pack per day. She admits to occasional alcohol and marijuana use but denies other illicit drug use) Family history: hypertension (both parents, no known family history of stroke) Medications and Allergies Allergies Allergy/AdvReac Type Severity Reaction Status Date / Time No Known Allergies Allergy Unverified 03/16/19 18:51 Home Medications Medication Instructions Recorded Confirmed Last Taken Type Amlodipine Besylate [Norvasc] 5 mg PO DAILY 03/16/19 03/16/19 Unknown History Ergocalciferol (Vitamin D2) 50 mcg PO DAILY 03/16/19 03/16/19 Unknown History [Vitamin D2] Active Meds: Active Medications Acetaminophen (Tylenol) 650 mg PO Q4H PRN PRN Reason: Pain, Mild (1-3) Last Admin: 03/17/19 02:49 Dose: 650 mg Documented by: Aspirin (Aspirin) 325 mg PO QDAY [facility] Atorvastatin Calcium (Lipitor) 40 mg PO QHS [facility] Last Admin: 03/16/19 22:54 Dose: 40 mg Documented by: Bisacodyl (Dulcolax) 10 mg [place] QDAY PRN PRN Reason: Constipation Hydrophilic Ointment (Vaseline Lip Therapy) 1 applic TP DIRECT PRN PRN Reason: Dry Lips Labetalol HCl (Normodyne) 10 mg IV Q5MIN PRN PRN Reason: Blood Pressure Magnesium Hydroxide (Milk Of Magnesia) 30 ml PO Q4H PRN PRN Reason: Constipation Metoclopramide HCl (Reglan) 10 mg PO Q6H PRN PRN Reason: Nausea And Vomiting Miscellaneous Medication (Ergocalciferol (Vitamin D2) [Vitamin D2]) 50 mcg PO DAILY ABIGAIL Ondansetron HCl (Zofran) 4 mg IV Q8H PRN PRN Reason: Nausea And Vomiting Promethazine HCl (Phenergan) 25 mg [place] Q6H PRN PRN Reason: Nausea And Vomiting Sodium Chloride (Sodium Chloride Flush Syringe 10 Ml) 10 ml IV PRN PRN PRN Reason: LINE FLUSH Review of Systems Musculoskeletal: arm numbness/tingling Physical Examination - Vital Signs Vital Signs: Vital Signs Temp Pulse Resp BP Pulse Ox 97.6 F 86 16 161/109 98 03/16/19 18:38 03/16/19 18:38 03/16/19 18:38 03/16/19 18:38 03/16/19 18:38 - Constitutional General appearance: comfortable - EENT EENT: Present: PERRL, mucous membranes moist - Respiratory Respiratory: Present: lungs clear - Cardiovascular Cardiovascular: Present: regular rate - Gastrointestinal Gastrointestinal: Present: normoactive bowel sounds - Neurologic Cranial nerve examination: PERRL, EOMI, V1/V2/V3 grossly intact, face symmetric, tongue midline Speech examination: intact Sensorimotor examination: intact Motor examination - right side: 5/5: biceps, triceps, wrist flexion, wrist extension, scale technician, hip flexors, knee extensors, dorsiflexion, toe extension (EHL), plantarflexion Motor examination - left side: 5/5: biceps, triceps, wrist flexion, wrist extension, scale technician, hip flexors, knee extensors, dorsiflexion, toe extension (EHL), plantarflexion Detailed sensory examination: intact Reflexes: 1+: ankle, bicep, knee, tricep Cerebellar examination: other (intact FNF) - Assessment Assessment Interval: 24 hours post onset of symptoms +-20 minutes - Level of Consciousness 1a. Level of Consciousness: alert/keenly responsive - LOC Questions 1b. LOC Questions: answers both correctly - LOC Command 1c. LOC Commands: performs tasks correctly - Visual 3. Visual: no visual loss - Facial Palsy 4. Facial Palsy: normal symmetrical movement - Motor Arm 5a. Motor Arm Left: no drift 5b. Motor Arm Right: no drift - Motor Leg 6a. Motor Leg Left: no drift 6b. Motor Leg Right: no drift - Limb Ataxia 7. Limb Ataxia: absent - Sensory 8. Sensory: normal - Dysarthria 10. Dysarthria: normal - Extinction and Inattention 11. Extinction/Inattention: no abnormality Results - Laboratory Findings CBC and BMP: 03/16/19 18:20 03/16/19 18:20 Abnormal Lab Findings: Abnormal Labs 03/16/19 03/16/19 03/16/19 18:20 18:20 23:50 Lymph % (Auto) 41.0 H Glucose 104 H POC Glucose 152 H LDL Cholesterol Direct 03/17/19 04:14 Lymph % (Auto) Glucose POC Glucose LDL Cholesterol Direct 142 H - Diagnostic Findings Additional findings: CTA- no abnormalities MRI Brain pending Assessment and Plan This is a 53 YO F with possible TIA vs stroke, s/p Alteplase Recommend: MRI Brain aspirin and statin daily, lipids and a1c PT/OT/St echo and carotids permissive htn x 24 hours, then lower per protocol continue care for all medical issues as you are doing
[2019-03-17] MEDS: ASPIRIN PO SCH (21:55)
--- NOTE | 2019-03-17 22:12 | Vascular Lab Report ---
PROCEDURE: VL CAROTID DUPLEX BILAT TECHNIQUE: Duplex Doppler ultrasound of the common, internal and external carotid arteries and the v ertebral arteries was performed bilaterally. Mathews scale imaging, velocity spectral waveform analysis, and color flow Doppler were employed. HISTORY: stroke COMPARISONS: None . Note: Measurement of carotid stenosis is based on flow velocity values that correlate with the [place] Symptomatic Carotid Endarterectomy Trial (NASCET) based stenosis criteria using the internal carotid artery diameter as the denominator for stenosis calculation. FINDINGS: RIGHT carotid artery: Velocities: ICA PSV: 63 cm/sec ICA End diastolic: 29 cm/sec CCA PSV: 86 cm/sec IC/CC ratio: 0.73 Plaque/color flow: Mild heterogeneous plaque without significant spectral broadening or abnormal col or flow . RIGHT vertebral artery: Antegrade systolic and diastolic flow LEFT carotid artery: Velocities: ICA PSV: 60 cm/sec ICA End diastolic: 29 cm/sec CCA PSV: 87 cm/sec IC/CC ratio: 0.69 Plaque/color flow: Mild heterogeneous plaque without significant spectral broadening or abnormal col or flow . LEFT vertebral artery: Antegrade systolic and diastolic flow IMPRESSION: 1. RIGHT carotid: No hemodynamically significant (less than 50 percent) internal carotid artery irving nosis. 2. LEFT carotid: No hemodynamically significant (less than 50 percent) internal carotid artery sten osis. 3. Vertebral arteries: Bilaterally antegrade. This document is electronically signed by Deo Corral MD., Mar 17 2019 10:10:35 PM ET
[2019-03-18] MEDS: ASPIRIN PO SCH (09:25)
[2019-03-18] MEDS: PEPCID PO SCH (11:41)
--- NOTE | 2019-03-18 12:42 | Magnetic Resonance Report ---
MRI BRAIN WITHOUT CONTRAST: 03/18/19 CLINICAL: Acute stroke. TECHNIQUE: Axial diffusion, T1, T2, gradient echo T2*, coronal and axial FLAIR and sagittal T1 sequences on a 1.5 Alyce magnet. FINDINGS: The ventricles are normal for age but the frontal and temporal lobe sulci are slightly large. Restricted diffusion involves the left posterior parietal cortex and is greatest in the post central gyrus. Minimal associated subcortical white matter restricted diffusion. The affected cortex demonstrates mild swelling with mild mass effect and hyperintensity on FLAIR and T2. No associated hemorrhage. No extra-axial collection. No chronic microbleeds on the gradient echo sequence. Normal pituitary and optic chiasm. The brainstem and cerebellum are normal. Intact vascular flow voids. Normal sinuses. The orbits, and soft tissues are normal. Normal calvarium and skull base. IMPRESSION: 1. Subacute nonhemorrhagic multifocal left parietal infarcts primarily involving cortex. 2. No hemorrhage. 3. No significant mass effect. 4. Mild frontal temporal cortical atrophy.
--- NOTE | 2019-03-18 12:45 | Magnetic Resonance Report ---
MRA HEAD WITHOUT CONTRAST: 03/18/19 CLINICAL: Stroke. TECHNIQUE: Axial 3-D [id number] MR angiography of the [place] with review of axial source images. FINDINGS: Intact [place] with no aneurysm, stenosis or occlusion. Symmetric blood flow in the anterior, middle and posterior cerebral arteries. Normal basilar and vertebral arteries. IMPRESSION: Normal study.
--- NOTE | 2019-03-18 15:05 | Progress Note ---
<FAMILIA STEVENS Zuleyka. - Last Filed: 03/18/19 15:19> Assessment and Plan Assessment and plan: 53-year-old -[place] female with history of hypertension who was brought to the ED via EMS on account of inability to speak and move. The patient stated that while she was talking to her mum over the phone at about 17:20, at some point she suddenly couldn't speak and move. She stated that she could understand what was being said but that she couldn't speak. Her mom then called her neighbor, who called 911 and she was brought to the hospital. On arrival to the ED, she was noted to have slurred speech with right-sided weakness. Initial CT Head suspicious for acute stroke. She received TPA at about 19:07 with resolution of her symptoms. Repeat CT Head reveal: The intracranial arterial vasculature appears widely patent. Carotid Doppler on 03/17 revealed: RIGHT carotid: No hemodynamically significant (less than 50 percent) internal carotid artery stenosis. LEFT carotid: No hemodynamically significant (less than 50 percent) internal carotid artery stenosis. Vertebral arteries: Bilaterally antegrade. MRA Brain showed Normal study MRI Brain showed acute nonhemorrhagic multifocal left parietal infarcts pr imarily involving cortex. 2. No hemorrhage. 3. No significant mass effect. 4. Mild frontal temporal cortical atrophy. Acute Ischemic Stroke Abnormal CT Head Hypertensive Crisis Tobacco Abuse Marijuana Abuse Hx of HTN Early DM Plan: S/P TPA Continue Stroke protocol Echo shows LVEF of 60% - 65% Contiue to monitor BP IV Labetalol prn for SBP >185 or DBP >1110 Continue to allow for permissive hypertension for one more day, then resume an tihypertensive medications tomorrow HgbA1C 6.5 encourage lifestyle and diet medications Continue to encourage cessation of tobacco and marijuana Neurology consult following History Interval history: Pt is seen on the Telemetry unit today. She continues to experience intermittent rt hand numbness. Her speech is clear, and bp WNL for stroke protocol. There are no other focal deficits noted. She denies n/v, pain, CP, discomfort, dyspnes, or headache. Hospitalist Physical - Physical exam Narrative exam: General appearance: Present: no acute distress, well-nourished - EENT Eyes: Present: PERRL, EOM intact ENT: hearing intact, clear oral mucosa, dentition normal - Neck Neck: Present: supple, normal ROM - Respiratory Respiratory effort: normal Respiratory: bilateral: CTA - Cardiovascular Heart rate: 77 (bpm) Rhythm: regular Heart Sounds: Present: S1 & S2. Absent: rub, click - Extremities Extremities: pulses intact, pulses symmetrical, No edema, Full ROM (c/o rt hand numbness) - Abdominal General gastrointestinal: soft, non-tender, normal bowel sounds - Integumentary Integumentary: Present: warm, dry - Psychiatric Psychiatric: appropriate mood/affect, cooperative - Neurologic Neurologic: CNII-XII intact, moves all extremities - Constitutional Vitals: Temp Pulse Resp BP Pulse Ox 98.0 F 77 18 137/87 98 03/18/19 11:35 03/18/19 11:35 03/18/19 11:35 03/18/19 11:35 03/18/19 13:06 General appearance: Present: no acute distress, well-nourished Results - Labs CBC & Chem 7: 03/16/19 18:20 03/16/19 18:20 Labs: Laboratory Last Values WBC 9.0 K/mm3 (4.5-11.0) 03/16/19 18:20 RBC 4.42 M/mm3 (3.65-5.03) 03/16/19 18:20 Hgb 14.1 gm/dl (10.1-14.3) 03/16/19 18:20 Hct 42.2 % (30.3-42.9) 03/16/19 18:20 MCV 96 fl (79-97) 03/16/19 18:20 MCH 32 pg (28-32) 03/16/19 18:20 MCHC 33 % (30-34) 03/16/19 18:20 RDW 13.8 % (13.2-15.2) 03/16/19 18:20 Plt Count 229 K/mm3 (140-440) 03/16/19 18:20 Lymph % (Auto) 41.0 % (13.4-35.0) H 03/16/19 18:20 [place] % (Auto) 5.4 % (0.0-7.3) 03/16/19 18:20 Eos % (Auto) 1.8 % (0.0-4.3) 03/16/19 18:20 Baso % (Auto) 0.3 % (0.0-1.8) 03/16/19 18:20 Lymph # 3.7 K/mm3 (1.2-5.4) 03/16/19 18:20 [place] # 0.5 K/mm3 (0.0-0.8) 03/16/19 18:20 Eos # 0.2 K/mm3 (0.0-0.4) 03/16/19 18:20 Baso # 0.0 K/mm3 (0.0-0.1) 03/16/19 18:20 Seg Neutrophils % 51.5 % (40.0-70.0) 03/16/19 18:20 Seg Neutrophils # 4.7 K/mm3 (1.8-7.7) 03/16/19 18:20 PT 13.0 Sec. (12.2-14.9) 03/16/19 18:20 INR 0.93 (0.87-1.13) 03/16/19 18:20 APTT 30.3 Sec. (24.2-36.6) 03/16/19 18:20 Thrombin Time 16.3 Sec. (15.1-19.6) 03/16/19 18:20 Sodium 143 mmol/L (137-145) 03/16/19 18:20 Potassium 3.7 mmol/L (3.6-5.0) 03/16/19 18:20 Chloride 103.7 mmol/L (98-107) 03/16/19 18:20 Carbon Dioxide 28 mmol/L (22-30) 03/16/19 18:20 Anion Gap 15 mmol/L 03/16/19 18:20 BUN 12 mg/dL (7-17) 03/16/19 18:20 Creatinine 0.9 mg/dL (0.7-1.2) 03/16/19 18:20 Estimated GFR > 60 ml/min 03/16/19 18:20 BUN/Creatinine Ratio 13 % 03/16/19 18:20 Glucose 104 mg/dL (65-100) H 03/16/19 18:20 POC Glucose 152 (70-105) H 03/16/19 23:50 Hemoglobin A1c 6.5 % (4-6) H 03/18/19 05:17 Calcium 9.0 mg/dL (8.4-10.2) 03/16/19 18:20 Troponin T < 0.010 ng/mL (0.00-0.029) 03/16/19 18:20 Triglycerides 113 mg/dL (2-149) 03/17/19 04:14 Cholesterol 188 mg/dL (50-199) 03/17/19 04:14 LDL Cholesterol Direct 142 mg/dL (50-130) H 03/17/19 04:14 HDL Cholesterol 42 mg/dL (40-59) 03/17/19 04:14 Cholesterol/HDL Ratio 4.47 % 03/17/19 04:14 HCG, Qual Negative (Negative) 03/16/19 18:20 Urine Color Straw (Yellow) 03/16/19 23:30 Urine Turbidity Clear (Clear) 03/16/19 23:30 Urine pH 7.0 (5.0-7.0) 03/16/19 23:30 Ur Specific [place] 1.030 (1.003-1.030) 03/16/19 23:30 Urine Protein <15 mg/dl mg/dL (Negative) 03/16/19 23:30 Urine Glucose (UA) Neg mg/dL (Negative) 03/16/19 23:30 Urine Ketones Neg mg/dL (Negative) 03/16/19 23:30 Urine Blood Mod (Negative) 03/16/19 23:30 Urine Nitrite Neg (Negative) 03/16/19 23:30 Urine Bilirubin Neg (Negative) 03/16/19 23:30 Urine Urobilinogen < 2.0 mg/dL (<2.0) 03/16/19 23:30 Ur Leukocyte Esterase Neg (Negative) 03/16/19 23:30 Urine WBC (Auto) 1.0 /HPF (0.0-6.0) 03/16/19 23:30 Urine RBC (Auto) 2.0 /HPF (0.0-6.0) 03/16/19 23:30 Active Medications - Current Medications Current Medications: Generic Name Dose Route Start Last Admin Trade Name Freq PRN Reason Stop Dose Admin Acetaminophen 650 mg 03/16/19 21:34 03/17/19 19:47 Tylenol PO 650 mg Q4H PRN Administration Pain, Mild (1-3) Aspirin 325 mg 03/17/19 20:00 03/18/19 09:25 Aspirin PO 325 mg QDAY ABIGAIL Administration Atorvastatin Calcium 40 mg 03/16/19 22:00 03/17/19 21:55 Lipitor PO 40 mg QHS ABIGAIL Administration Bisacodyl 10 mg 03/16/19 21:34 Dulcolax CA QDAY PRN Constipation Famotidine 20 mg 03/18/19 10:00 03/18/19 11:41 Pepcid PO 20 mg QDAY ABIGAIL Administration Hydrophilic Ointment 1 applic 03/16/19 21:27 Vaseline Lip Therapy TP DIRECT PRN Dry Lips Labetalol HCl 10 mg 03/16/19 21:34 Normodyne IV Q5MIN PRN Blood Pressure Magnesium Hydroxide 30 ml 03/16/19 21:34 Milk Of Magnesia PO Q4H PRN Constipation Metoclopramide HCl 10 mg 03/16/19 21:34 Reglan PO Q6H PRN Nausea And Vomiting Miscellaneous Medication 50 mcg 03/17/19 10:00 Ergocalciferol (Vitamin D2) [Vitamin D2] PO DAILY ABIGAIL Ondansetron HCl 4 mg 03/16/19 21:34 Zofran IV Q8H PRN Nausea And Vomiting Promethazine HCl 25 mg 03/16/19 21:34 Phenergan CA Q6H PRN Nausea And Vomiting Sodium Chloride 10 ml 03/16/19 21:34 Sodium Chloride Flush Syringe 10 Ml IV PRN PRN LINE FLUSH <KERRI VERONICA M - Last Filed: 03/20/19 22:57> Assessment and Plan Assessment and plan: I saw and evaluated the patient. I agree with the findings and the plan of care as documented in the Nurse Practitioner's~note Hospitalist Physical - Constitutional Vitals: Temp Pulse Resp BP Pulse Ox 98.6 F 84 18 137/83 95 03/18/19 22:01 03/18/19 22:01 03/18/19 22:01 03/18/19 22:01 03/19/19 09:00 Results - Labs CBC & Chem 7: 03/16/19 18:20 03/16/19 18:20 Labs: Laboratory Last Values WBC 9.0 K/mm3 (4.5-11.0) 03/16/19 18:20 RBC 4.42 M/mm3 (3.65-5.03) 03/16/19 18:20 Hgb 14.1 gm/dl (10.1-14.3) 03/16/19 18:20 Hct 42.2 % (30.3-42.9) 03/16/19 18:20 MCV 96 fl (79-97) 03/16/19 18:20 MCH 32 pg (28-32) 03/16/19 18:20 MCHC 33 % (30-34) 03/16/19 18:20 RDW 13.8 % (13.2-15.2) 03/16/19 18:20 Plt Count 229 K/mm3 (140-440) 03/16/19 18:20 Lymph % (Auto) 41.0 % (13.4-35.0) H 03/16/19 18:20 [place] % (Auto) 5.4 % (0.0-7.3) 03/16/19 18:20 Eos % (Auto) 1.8 % (0.0-4.3) 03/16/19 18:20 Baso % (Auto) 0.3 % (0.0-1.8) 03/16/19 18:20 Lymph # 3.7 K/mm3 (1.2-5.4) 03/16/19 18:20 [place] # 0.5 K/mm3 (0.0-0.8) 03/16/19 18:20 Eos # 0.2 K/mm3 (0.0-0.4) 03/16/19 18:20 Baso # 0.0 K/mm3 (0.0-0.1) 03/16/19 18:20 Seg Neutrophils % 51.5 % (40.0-70.0) 03/16/19 18:20 Seg Neutrophils # 4.7 K/mm3 (1.8-7.7) 03/16/19 18:20 PT 13.0 Sec. (12.2-14.9) 03/16/19 18:20 INR 0.93 (0.87-1.13) 03/16/19 18:20 APTT 30.3 Sec. (24.2-36.6) 03/16/19 18:20 Thrombin Time 16.3 Sec. (15.1-19.6) 03/16/19 18:20 Sodium 143 mmol/L (137-145) 03/16/19 18:20 Potassium 3.7 mmol/L (3.6-5.0) 03/16/19 18:20 Chloride 103.7 mmol/L (98-107) 03/16/19 18:20 Carbon Dioxide 28 mmol/L (22-30) 03/16/19 18:20 Anion Gap 15 mmol/L 03/16/19 18:20 BUN 12 mg/dL (7-17) 03/16/19 18:20 Creatinine 0.9 mg/dL (0.7-1.2) 03/16/19 18:20 Estimated GFR > 60 ml/min 03/16/19 18:20 BUN/Creatinine Ratio 13 % 03/16/19 18:20 Glucose 104 mg/dL (65-100) H 03/16/19 18:20 POC Glucose 152 (70-105) H 03/16/19 23:50 Hemoglobin A1c 6.5 % (4-6) H 03/18/19 05:17 Calcium 9.0 mg/dL (8.4-10.2) 03/16/19 18:20 Troponin T < 0.010 ng/mL (0.00-0.029) 03/16/19 18:20 Triglycerides 113 mg/dL (2-149) 03/17/19 04:14 Cholesterol 188 mg/dL (50-199) 03/17/19 04:14 LDL Cholesterol Direct 142 mg/dL (50-130) H 03/17/19 04:14 HDL Cholesterol 42 mg/dL (40-59) 03/17/19 04:14 Cholesterol/HDL Ratio 4.47 % 03/17/19 04:14 HCG, Qual Negative (Negative) 03/16/19 18:20 Urine Color Straw (Yellow) 03/16/19 23:30 Urine Turbidity Clear (Clear) 03/16/19 23:30 Urine pH 7.0 (5.0-7.0) 03/16/19 23:30 Ur Specific [place] 1.030 (1.003-1.030) 03/16/19 23:30 Urine Protein <15 mg/dl mg/dL (Negative) 03/16/19 23:30 Urine Glucose (UA) Neg mg/dL (Negative) 03/16/19 23:30 Urine Ketones Neg mg/dL (Negative) 03/16/19 23:30 Urine Blood Mod (Negative) 03/16/19 23:30 Urine Nitrite Neg (Negative) 03/16/19 23:30 Urine Bilirubin Neg (Negative) 03/16/19 23:30 Urine Urobilinogen < 2.0 mg/dL (<2.0) 03/16/19 23:30 Ur Leukocyte Esterase Neg (Negative) 03/16/19 23:30 Urine WBC (Auto) 1.0 /HPF (0.0-6.0) 03/16/19 23:30 Urine RBC (Auto) 2.0 /HPF (0.0-6.0) 03/16/19 23:30
[2019-03-18] MEDS: TYLENOL PO PRN (19:48)
--- NOTE | 2019-03-18 21:38 | Consultation ---
PULMONARY CRITICAL CARE CONSULTATION CONSULTING PHYSICIAN: Dr. Canseco. REASON FOR CONSULTATION: Acute CVA, status post TPA administration, need for ICU evaluation. CHIEF COMPLAINT AND HISTORY OF PRESENT ILLNESS: As follows: The patient is a 53-year-old -[place]ian female with a past medical history significant mostly for a diagnosis of hypertension, was brought to the emergency room after she developed sudden inability speaking and moving. She stated she was talking to her mom over the phone about 4 hours prior to showing up in the Emergency Room when she suddenly could not speak or move. She could hear, but she could not talk. She states her mom called a neighbor who called 911 and she was brought to the Emergency Room. In the Emergency Room, she continued to have slurred speech with right-sided weakness. She received TPA about 190, which is with less than 2 hours after the initial onset of her symptoms. Her symptoms improved and she was transferred to the Intensive Care Unit where I stopped by to see her. When I stopped by to see her, she was feeling much better, still felt a little weak, but certainly her voice was much stronger. Denied any chest pains or palpitations. She denied any nausea, vomiting, fevers or chills. She denies any trauma. With regards to tobacco use, she has a 30+ pack year tobacco smoking history and understands she has to quit. She also drinks alcohol occasionally. This really is as much of the history of presentation as I have. She denied any prior bleeding, diathesis prior to receiving the TPA. PAST MEDICAL HISTORY: Hypertension. PAST SURGICAL HISTORY: She has had ovarian cystectomies and surgery for an ectopic . MEDICATIONS: MEDICATIONS: She was on at the time I stopped by to see her were reviewed. Pertinent medications included the following: Tylenol 650 mg p.o. q. 4 hours p.r.n. mild pain or fevers, aspirin 325 mg p.o. daily, Lipitor 40 mg p.o. at bedtime, Dulcolax 10 mg per rectum daily p.r.n. constipation, labetalol 10 mg IV p.r.n. for systolic blood pressure greater than 180 mmHg, Reglan 10 mg p.o. q. 6 hours p.r.n. nausea and vomiting, Zofran 4 mg IV q. 8 hours p.r.n. nausea and vomiting. ALLERGIES: No known drug allergies. DIET: Well-built lady, actually obese. Denies acute weight loss or gain in the preceding few weeks to months. FAMILY AND SOCIAL HISTORY: Lives in the community. She has a 30+ pack year tobacco smoking history. She drinks occasionally. Denies illicit drug use or abuse. There is a family history of hypertension in both parents. REVIEW OF SYSTEMS: No overt loss of consciousness. No new onset seizures. She did have the new onset right-sided weakness. Denies gross hematochezia or melena. Denies gross hematuria or dysuria. No hematemesis. No hemoptysis. Denied palpitations. Denied heat or cold intolerance. Denied polydipsia, polyuria. Complete 13-system review of systems obtained. Pertinent positives and/or negatives as in body of history above, otherwise they are noncontributory. PHYSICAL EXAMINATION: VITAL SIGNS: At presentation, she was afebrile, temperature 97.6 degrees Fahrenheit with a pulse of 86, respiratory rate of 16, blood pressure 161/109, O2 sats were 98%, inspired oxygen concentration at that time was not recorded. When I stopped by to see her, O2 sats were about 97% on room air. GENERAL: She is a middle-aged -[place] female, obese. Normocephalic, atraumatic, talking to me with complete sentences without overt respiratory distress. HEAD, EYES, EARS, NOSE AND THROAT: She is anicteric. No conjunctival erythema. Oropharynx is a moist, is a Mallampati #2 oropharynx. No gross jugular venous distention, no thyromegaly. Grossly, no palpable lymph nodes in the supraclavicular or submandibular lymph node chains. LUNGS: Auscultation of both lung fortune unremarkable. Both lungs are clear bilaterally. HEART: Heart sounds 1 and 2 are heard. They were regular in rate and rhythm at time of my evaluation without rubs or murmurs. ABDOMEN: Soft. Bowel sounds are positive, nontender. No palpable hepatosplenomegaly. EXTREMITIES: Without overt digital clubbing, cyanosis, no pedal edema. Pedal pulses are palpable and strong bilaterally. NEUROLOGIC: Pupils are equal, round, about 4 mm, reactive to light. Extraocular muscle movements are intact. Her tongue protrudes centrally. No obvious facial droop. Power in the right upper extremity still about 3-4/5, otherwise power is about 5/5 in the other extremities. She moves all 4 extremities spontaneously. No spasticity. No fasciculations. SKIN: Normal turgor without overt cellulitis or rash. LABORATORY DATA: From my review, white cell count 9000, hemoglobin 14.1, hematocrit 42.2, platelet count 229. INR 0.93. Serum sodium 143, potassium 3.7, chloride 104, bicarbonate 28, BUN 12, creatinine 0.9, glucose is 104. LDL cholesterol 142, HDL cholesterol 42. Urinalysis, moderate blood, but negative for nitrites and leukocyte esterase. A CT of the head was done as well as CT angio of the neck and CT angio of the head also. The CT angio of the head was unremarkable. The CT angio of the neck was unremarkable for major disease and a CT scan of the head, no acute intracranial hemorrhage, low density of the left hemispheric white matter relative to the right is a common artifactual finding; however, they could not rule out an infarct, mild prominence of the basilar artery. ASSESSMENT: 1. Acute cerebrovascular accident, now status post TPA. 2. Abnormal CT angiogram of the head, pending an MRA. 3. Hypertensive crisis. 4. Tobacco use disorder. 5. Obesity. PLAN: Secondary prevention has been discussed extensively with her. She will be placed on antilipid therapy. She will also be placed on aspirin. She will need to obtain better control of her blood pressure. I have explained the importance of weight loss and other lifestyle modifications to her. We will watch in the ICU for 24 hours before institution of further anticoagulation, post-TPA. Neurology consultation has been requested. Aspiration precautions will be maintained. She may need a swallow evaluation going forward. Otherwise, she will be placed on GI prophylaxis, especially status post TPA. She will be also getting DVT prophylaxis once the time is off. Flu and pneumonia vaccination will be addressed per protocol. Thank you very much for the consult. We will follow along. We will make further recommendations as picture progresses/becomes clearer. JOB# [id number] FAUSTINA/LEIDA
[2019-03-18 23:05] VITALS: BP 137/83
--- NOTE | 2019-03-19 07:53 | Progress Note ---
Assessment and Plan Acute Ischemic Stroke Abnormal CT Head Hypertensive Crisis Tobacco Abuse Marijuana Abuse Hx of HTN Plan: S/P TPA Continue Stroke protocol Repeat CT Head reveal: The intracranial arterial vasculature appears widely patent MRI head and carotid doppler pending Echo shows LVEF of 60% - 65% Contiue to monitor BP IV Labetalol prn for SBP >185 or DBP >110 Continue to allow for permissive hypertension Continue to encourage cessation of tobacco and marijuana Subjective Date of service: 03/19/19 Interval history: Patient is seen today for: CVA s/p TPA Seen and examined at bedside; 24hour events reviewed; nursing and respiratory c are staff consulted; no adverse overnight events reported to me; She continues to experience intermittent right hand numbness. Her speech is clear She denies any fevers, no chest pain, no shortness of breath. No nausea or vomiting, no headaches Objective - Exam Narrative Exam: General appearance: Present: no acute distress, well-nourished - EENT Eyes: Present: PERRL, EOM intact ENT: hearing intact, clear oral mucosa, dentition normal - Neck Neck: Present: supple, normal ROM - Respiratory Respiratory effort: normal Respiratory: bilateral: CTA - Cardiovascular Heart rate: 77 (bpm) Rhythm: regular Heart Sounds: Present: S1 & S2. Absent: rub, click - Extremities Extremities: pulses intact, pulses symmetrical, No edema, Full ROM (c/o rt hand numbness) - Abdominal General gastrointestinal: soft, non-tender, normal bowel sounds - Integumentary Integumentary: Present: warm, dry - Psychiatric Psychiatric: appropriate mood/affect, cooperative - Neurologic Neurologic: CNII-XII intact, moves all extremities Vital Signs - 12hr 03/18/19 03/18/19 19:54 22:01 Temperature 98.6 F Pulse Rate 84 Respiratory 18 Rate Blood Pressure 137/83 O2 Sat by Pulse 96 97 Oximetry Gastrointestinal: normoactive bowel sounds CBC and BMP: 03/16/19 18:20 03/16/19 18:20 ABG, PT/INR, D-dimer: PT/INR, D-dimer PT 13.0 Sec. (12.2-14.9) 03/16/19 18:20 INR 0.93 (0.87-1.13) 03/16/19 18:20 Abnormal lab findings: Abnormal Labs 03/16/19 03/16/19 03/16/19 18:20 18:20 23:50 Lymph % (Auto) 41.0 H Glucose 104 H POC Glucose 152 H Hemoglobin A1c LDL Cholesterol Direct 03/17/19 03/18/19 04:14 05:17 Lymph % (Auto) Glucose POC Glucose Hemoglobin A1c 6.5 H LDL Cholesterol Direct 142 H
[2019-03-19] MEDS: ASPIRIN PO SCH (10:09)
[2019-03-19] MEDS: PEPCID PO SCH ×2 (10:09→10:12)
--- NOTE | 2019-03-19 10:56 | Discharge Summary ---
Providers - Providers Date of Admission: 03/16/19 21:35 Attending physician: KERRI VERONICA MD 03/16/19 Consult to Physician [CONS] Routine Comment: Consulting Provider: FNEG LOBO Physician Instructions: Reason For Exam: stroke s/p TPA 03/16/19 21:35 Occupational Therapy Evaluate and Treat [CONS] Routine Comment: Reason For Exam: Neuro deficits Physical Therapy Evaluation and Treat [CONS] Routine Comment: Reason For Exam: Neuro deficits 03/16/19 23:36 Consult to Physician [CONS] Routine Comment: Consulting Provider: SOO SAPP Physician Instructions: Reason For Exam: stroke s/p TPA [facility] Hospital course: 53-year-old woman with history of hypertension, tobacco abuse and marijuana abuse presented with right-sided weakness and dysarthria and aphasia. She was admitted for acute stroke, she received TPA, she was observed in the ICU. MRI confirmed acute nonhemorrhagic focal left parietal infarcts primarily involving the cortex. The patient was educated, her medications optimized for secondary stroke prevention. Carotid Dopplers were negative for significant stenosis, echo did not show any defects, showed preserved EF. She received neurology consultation who agreed with the management -Patient was counseled on tobacco cessation, greater than 10 minutes was spent -Patient counseled on lifestyle modification, preventative health, greater than 17 minutes spent -The patient's symptoms improved and she was subsequently discharged Diagnoses Acute ischemic stroke with infarcts Hypertensive urgency Tobacco abuse Marijuana abuse Prediabetes Nonadherence blood pressure medications Disposition: [id number] HOME UNDER HOME [facility] Time spent for discharge: 35 minutes Core Measure Documentation - Palliative Care Palliative Care/ Comfort Measures: Not Applicable - Core Measures Any of the following diagnoses?: stroke - Stroke Discharge Requirements Statin for LDL = or >70 mg/dl on DC: Yes Anticoag for atrial fib/atrial flutter: Not Applicable Antithrombotic for ischemic stroke: Yes Exam - Constitutional Vitals: Temp Pulse Resp BP Pulse Ox 98.6 F 84 18 137/83 95 03/18/19 22:01 03/18/19 22:01 03/18/19 22:01 03/18/19 22:01 03/19/19 09:00 General appearance: Present: no acute distress, well-nourished - EENT Eyes: Present: PERRL ENT: hearing intact, clear oral mucosa - Neck Neck: Present: supple, normal ROM - Respiratory Respiratory effort: normal Respiratory: bilateral: CTA - Cardiovascular Heart Sounds: Present: S1 & S2. Absent: rub, click - Extremities Extremities: pulses symmetrical, No edema Peripheral Pulses: within normal limits - Abdominal General gastrointestinal: Present: soft, non-tender, non-distended, normal bowel sounds Female genitourinary: Present: normal - Integumentary Integumentary: Present: clear, warm, dry - Musculoskeletal Musculoskeletal: gait normal, strength equal bilaterally - Psychiatric Psychiatric: appropriate mood/affect, intact judgment & insight - Neurologic Neurologic: CNII-XII intact, moves all extremities Plan [facility] Care [facility] - 3-5 Days Prescriptions: AtorvaSTATin [Lipitor] 40 mg PO QHS #30 tablet Aspirin EC [Aspirin Enteric Coated TAB] 81 mg PO QDAY #30 tablet. Amlodipine Besylate [Norvasc] 5 mg PO DAILY #30 tablet Other Discharge Orders: Occupational Therapy (Amb) Location: None Selected
== END 2019-03-19 14:55 | disposition home health service (06) | DRG 62 ==
LOC: ED 18:07 → CC1 21:35 → 3A 03-17 20:17
PROVIDERS: ADMIT Internal Medicine; ATTEND Internal Medicine
DX: I63.9 Cerebral infarction, unspecified (principal); G81.91 Hemiplegia, unspecified affecting right dominant side; I16.9 Hypertensive crisis, unspecified; F12.10 Cannabis abuse, uncomplicated; E66.9 Obesity, unspecified; R47.01 Aphasia; R29.709 NIHSS score 9; F17.210 Nicotine dependence, cigarettes, uncomplicated; R47.81 Slurred speech; I10 Essential (primary) hypertension; Z82.49 Family history of ischemic heart disease and other diseases of the circulatory system; Z72.89 Other problems related to lifestyle; Z71.6 Tobacco abuse counseling; Z71.51 Drug abuse counseling and surveillance of drug abuser; Z68.37 Body mass index [BMI] 37.0-37.9, adult; Z71.89 Other specified counseling
CPT/HCPCS: 36415; 70450; 70496; 70498; 70544; 70551; 80048; 80061; 81001; 82962; 83036; 84484; 84703; 85025; 85610; 85670; 85730; 93005; 93010; 93306; 93880; 99285; 99406; G0378; A9270-GY; J2997; Q9967

== ENCOUNTER 2020-01-01 08:06 | Emergency (ER) | payer SELFPAY | END 2020-01-01 12:52 | disposition left against medical advice (07) | LOC: ED 08:06 | DX: M79.605 Pain in left leg (principal); Z53.21 Procedure and treatment not carried out due to patient leaving prior to being seen by health care provider ==